=== PATIENT | female | born 1950 | race Caucasian/White ===

== ENCOUNTER → 2018-02-26 13:07 | Outpatient (CLI) | payer MEDICARE, OTHER, SELFPAY ==
--- NOTE | 2018-02-26 | DI.MRI.S_ITS ---
PROCEDURE: MR SHOULDER RT WO/W CON INDICATIONS: RIGHT SHOULDER PAIN TECHNIQUE: Noncontrast oblique coronal T1 spin echo and T2 fast spin echo with fat saturation, oblique sagittal T1 spin echo and T2 fast spin echo with fat saturation, axial T1 spin echo and T2 fast spin echo with fat saturation through the shoulder. Post-contrast oblique coronal, oblique sagittal, and axial T1 spin echo with fat saturation through the shoulder. COMPARISON: None. FINDINGS: Image quality: Excellent. Rotator cuff: Tendinosis and moderate to high grade articular surface partial thickness tear involving anterior fibers of distal supraspinatus at its insertion on greater tuberosity of humeral head extending to the musculotendinous junction. There is tendinosis and moderate grade articular and bursal surface partial-thickness tear involving distal infraspinatus at its insertion on the humeral head extending to musculotendinous junction and lateral portion of infraspinatus muscle. Tendinosis and low-grade intrasubstance partial-thickness tear involving distal subscapularis is seen. Sagittal images demonsterate mild supraspinatus muscle atrophy. The flow signal within lateral portion of infraspinatus muscle near musculotendinous junction is seen suggestive of muscle strain and intrasubstance partial-thickness tear. Bones and bursae: No suspicious bone marrow enhancement. Intraosseous cyst formation in the anterior lateral humeral head is seen a rotator cuff tendon insertion site. No bone marrow contusions or fractures. Mild acromioclavicular joint and glenohumeral joint osteoarthritis is seen.. The acromion demonstrates conventional anatomy, without an os acromiale. No pathologic subacromial-subdeltoid or subcoracoid bursal fluid is present. Capsule and soft tissues: No suspicious soft tissue enhancement. In the absence of intra-articular contrast, there is suggestion of focal posterior superior labral tear 11 to 12:00 position. There is also suggestion of inferior labral tear from 4 to 6:00 position. The glenohumeral ligaments appear intact. The long head of the biceps tendon demonstrates normal location and morphology. The rotator interval appears normal, without fibrosis. The coracohumeral ligament is normal in thickness. IMPRESSION: 1. Tendinosis and moderate to high-grade articular surface partial-thickness tear involving anterior fibers of distal supraspinatus at its insertion on greater tuberosity of humeral head. Cannot rule out focal full-thickness perforation involving most anterior fibers of distal supraspinatus at its insertion on the humeral head. No significant retraction of torn tendon fibers is seen. 2. Tendinosis and moderate grade articular and bursal surface partial-thickness tear involving distal infraspinatus at its humeral head insertion extending to musculotendinous junction with suggestion of muscle strain and intrasubstance low-grade partial-thickness tear involving lateral portion of infraspinatus muscle. 3. Distal subscapularis tendinosis. Mild supraspinatus muscle atrophy. 4. Suggestion of posterior superior labral tear at 11 to 12:00 position and inferior labral tear at 4 to 6:00 position. 5. Mild acromioclavicular joint and glenohumeral joint osteoarthritis. No fracture or dislocation. Dictated by: Jamie Gaxiola M.D. on 02/26/2018 at 15:33 Approved by: Jamie Gaxiola M.D. on 02/26/2018 at 16:01
== END ==
PROVIDERS: PCP Internal Medicine; Visit Provider Internal Medicine
DX: M25.511 Pain in right shoulder (principal)
CPT/HCPCS: 73223; A9579

== ENCOUNTER → 2018-03-28 08:51 | Outpatient (CLI) | payer MEDICARE, OTHER, SELFPAY ==
--- NOTE | 2018-03-28 | DI.US.S_ITS ---
PROCEDURE: US PELVIC COMPLETE INDICATIONS: FOLLOW UP LEFT OVARIAN CYST TECHNIQUE: Real-time scanning was performed of the pelvic organs, with image documentation. Additional endovaginal scanning was necessary due to incomplete visualization of the adnexal and endometrial structures by transabdominal scanning. COMPARISON: [facility], , PELVIC COMPLETE, 07/03/2016, 8:58. FINDINGS: Transabdominal scanning: Limited scanning through the kidneys shows no hydronephrosis. No pathologic free abdominal or pelvic fluid. Endovaginal scanning: Uterus: Uterus is normal in size at 5.7 x 2.6 x 3.7 cm. The endometrium measures 1.9 mm in combined thickness. 2 mm endometrial cyst. Posterior subserosal fibroid measuring 0.9 x 0.7 x 0.9 cm. Ovaries: Right ovary surgically absent. Left ovary measures 2.6 x 1.4 x 1.5 cm. Multiple simple cysts involve the left ovary, largest which measures up to 9.0 mm which is unchanged from prior examination. IMPRESSION: Multiple simple left ovarian cysts, largest measuring up to 9.0 mm which appears unchanged from prior examination. Continued sonographic surveillance recommended. Dictated by: Atrur RODRIGUEZ Interpreted: Jose Armando Davis MD on 03/28/2018 at 11:19 Approved by: Jose Armando Davis M.D. on 03/28/2018 at 11:57
== END ==
PROVIDERS: PCP Internal Medicine; Visit Provider Internal Medicine
DX: N83.292 Other ovarian cyst, left side (principal); D25.2 Subserosal leiomyoma of uterus; N85.8 Other specified noninflammatory disorders of uterus
CPT/HCPCS: 76830; 76856

== ENCOUNTER → 2018-11-24 09:32 | Outpatient (CLI) | payer MEDICARE, OTHER, SELFPAY ==
[2018-11-24 11:43] LABS: Alanine Aminotransferase 13 IU/L (9-52); Albumin 4.1 g/dL (3.5-5.0); Albumin Globulin Ratio 1.3 (1.0-2.8); Alkaline Phosphatase 43 U/L (38-126); Aspartate Aminotransferase 25 IU/L (14-36); BUN Creatinine Ratio 27.1 (6-22); Bilirubin Total 0.5 mg/dL (0.2-1.3); Blood Urea Nitrogen 19 mg/dL (7-17); Calcium 9.5 mg/dL (8.4-10.2); Carbon Dioxide 30 mmol/L (22-32); Chloride 101 mmol/L (98-107); Estimated Glomerular Filt Rate > 60.0 mL/min (>60); Globulin 3.1 g/dL (1.7-4.1); Glucose 78 mg/dL (80-110); HEMOLYSIS < 15 (0-50); Potassium 4.2 mmol/L (3.4-5.1); Sodium 138 mmol/L (137-145); Total Protein 7.2 g/dL (6.3-8.2)
== END ==
PROVIDERS: PCP Internal Medicine; Visit Provider Internal Medicine
DX: E83.52 Hypercalcemia (principal)
CPT/HCPCS: 36415; 80053

== ENCOUNTER → 2019-04-01 11:58 | Outpatient (CLI) | payer MEDICARE, OTHER, SELFPAY ==
--- NOTE | 2019-04-01 | DI.US.S_ITS ---
PROCEDURE: US PELVIC COMPLETE INDICATIONS: LEFT OVARIAN CYST TECHNIQUE: Real-time scanning was performed of the pelvic organs, with image documentation. Additional endovaginal scanning was necessary due to incomplete visualization of the adnexal and endometrial structures by transabdominal scanning. COMPARISON: [facility], PELVIC COMPLETE, 03/28/2018, 9:22. [facility], PELVIC COMPLETE, 07/03/2016, 8:58. FINDINGS: Transabdominal scanning: Limited scanning through the kidneys shows no hydronephrosis. No pathologic free abdominal or pelvic fluid. Endovaginal scanning: Uterus: Uterus is normal in size at 3.0 x 3.6 x 5.5 cm. The endometrium measures 1.8 mm in combined thickness. Ovaries: Not seen, no adnexal dominant cyst is found. IMPRESSION: Normal endometrium, normal myometrium. No adnexal cystic or solid mass is found. Dictated by: Eric Henderson M.D. on 04/01/2019 at 15:43 Approved by: Eric Henderson M.D. on 04/01/2019 at 15:45
== END ==
PROVIDERS: PCP Internal Medicine; Visit Provider Internal Medicine
DX: N83.292 Other ovarian cyst, left side (principal)
CPT/HCPCS: 76830; 76856

== ENCOUNTER → 2019-04-10 06:50 | Outpatient (CLI) | payer MEDICARE, OTHER, SELFPAY ==
--- NOTE | 2019-04-10 | DI.ECHO.S_ITS ---
[place] +---------+ [facility] +---------+ : : [address] : : : : [id number] : : : : Phone: [phone]+ Echocardiogram Report + + :Name: THANG FONSECA Study Date: 04/10/2019 Height: 64 in : :[facility] Weight: 141 lb : : Gender: Female BSA: 1.7 m2 : :: 1950 Age: 68 yrs BP: 111/78 mmHg: :Reason For Study: PALPITATIONS : : Performed By: Moshe Rubio : :Referring: MARIANNA HINTON : + + Interpretation Summary Normal left ventricle size with ejection fraction 55-60%. Severely dilated both atria. Mild aortic valve sclerosis. Mild aortic regurgitation. Mild mitral valve prolapse. Moderate to severe mitral regurgitation. Mild to moderate tricuspid regurgitation. Procedure: A two-dimensional transthoracic echocardiogram with color flow and Doppler was performed. The study quality was technically good. There is no prior echocardiogram noted for this patient. The patient was in normal sinus rhythm during the exam. The patient had occasional PVCs during the exam. Left Ventricle: The left ventricle is normal in size. There is normal left ventricular wall thickness. The ejection fraction is estimated to be 55-60%. There are no focal wall motion abnormalities. Right Ventricle: The right ventricle is normal in size and function. Atria: Both atria are severely dilated. The interatrial septum is intact with no evidence for an atrial septal defect. Mitral Valve: The mitral valve leaflets appear borderline thickened, but open well. There is mild mitral valve prolapse. There is moderate to severe mitral regurgitation. Aortic Valve: The aortic valve is trileaflet. The aortic valve opens well. There is mild aortic valve sclerosis. There is mild aortic regurgitation. Tricuspid Valve: The tricuspid valve is normal in structure and function. There is mild to moderate tricuspid regurgitation. The right ventricular systolic pressure is estimated to be at least 22 mmHg based on an estimated right atrial pressure of 3 mm Hg. Pulmonic Valve: The pulmonic valve is normal in structure and function. There is trace pulmonic regurgitation. Great Vessels: The aortic root is normal size. The dimensions of the ascending aorta are normal. The pulmonary artery is normal size. The IVC is of normal diameter and collapses greater than 50% with a sniff. This suggests a low right atrial pressure of 3 mm Hg. Pericardium/ Pleura There is no pericardial effusion. There is no pleural effusion. MMode/2D Measurements & Calculations LVIDd: 5.1 cm LVOT diam: 2.4 cm LVIDs: 3.3 cm Ao root diam: 3.5 cm FS: 35.5 % Aortic Jxn: 3.2 cm EPSS: 0.41 cm asc Aorta Diam: 3.2 cm IVSd: 0.83 cm Ao Arch Diam (Prox Trans): 2.1 cm LVPWd: 1.0 cm LV jones. diameter/BSA (cm/m^2): 3.0 LV sys. diameter/BSA (cm/m^2): 2.0 LA A2 area: 24.5 cm2 RA long axis: 6.3 cm LA A4 area: 24.4 cm2 RA area: 24.3 cm2 LA length (vol): 6.0 cm RA vol: 80.2 ml LA vol: 84.5 ml RA : 47.6 ml/m2 LA vol index: 50.1 ml/m2 IVC diam: 1.2 cm RVD1 (basal): 3.8 cm RVD2 (mid): 3.0 cm Doppler Measurements & Calculations Ao V2 max: 113.7 cm/sec LVOT Max Joseph: 94.2 cm/sec Ao V2 mean: 84.1 cm/sec LV V1 max P.5 mmHg Ao max P.2 mmHg LV V1 VTI: 20.0 cm Ao mean P.0 mmHg ROULA(I,D): 3.6 cm2 Ao V2 VTI: 24.7 cm ROULA(V,D): 3.7 cm2 sev ratio: 0.81 ROULA indexed to BSA (cm^2/m^2): 2.1 AI P1/2t: 654.1 msec AI dec slope: 202.3 cm/sec2 MV E max joseph: 53.3 cm/sec TR max joseph: 217.6 cm/sec MV A max joseph: 52.0 cm/sec TR max P.9 mmHg MV E/A: 1.0 PA V2 max: 66.2 cm/sec Med Peak E' Joseph: 4.1 cm/sec PA V2 mean: 52.2 cm/sec E/E' med: 12.9 PA mean P.1 mmHg Lat Peak E' Joseph: 3.8 cm/sec PA pr(Accel): 39.1 mmHg E/E' lat: 14.0 PA Accel Time: 0.09 sec E/e' average: 13.4 MV dec time: 0.27 sec SV(LVOT): 88.3 ml Electronically signed by: Lori Velasquez on Reading Physician:04/10/2019 01:56 PM
== END ==
PROVIDERS: PCP Internal Medicine; Referring Provider Internal Medicine; Visit Provider Internal Medicine
DX: I08.3 Combined rheumatic disorders of mitral, aortic and tricuspid valves (principal); R00.2 Palpitations; R42 Dizziness and giddiness; G43.109 Migraine with aura, not intractable, without status migrainosus
CPT/HCPCS: 93306

== ENCOUNTER 2019-04-18 19:02 | Emergency (ER) | payer MEDICARE, OTHER, SELFPAY ==
[2019-04-18 19:14] VITALS: BP 181/80; PULSE 110; RESP 20; TEMP 37.2; O2SAT 100; BMI 24.4
--- NOTE | 2019-04-18 19:26 | DI.RAD.S_ITS ---
PROCEDURE: XR CHEST 1V INDICATIONS: chest pain TECHNIQUE: One view of the chest was acquired. COMPARISON: None. FINDINGS: Surgical changes and devices: None. Lungs and pleura: Lungs are clear. No pleural effusions or pneumothorax. Mediastinum: Mediastinal contours appear normal. Heart size is normal. Bones and chest wall: No suspicious bony lesions. Overlying soft tissues appear unremarkable. IMPRESSION: No evidence acute pulmonary process. Dictated by: Jose Armando Davis M.D. on 04/18/2019 at 20:31 Approved by: Jose Armando Davis M.D. on 04/18/2019 at 20:32
--- NOTE | 2019-04-18 20:05 | ED.DIZZY ---
HPI - Dizziness General Chief Complaint: Dizziness Stated Complaint: Weakness,shakiness,dizziness Time Seen by Provider: 04/18/19 20:04 Source: patient Mode of arrival: Family Vehicle Limitations: no limitations History of Present Illness HPI Narrative: 68-year-old female nonsmoker with history of difficulty with sleep presents with her in the chief complaint of many months of vague episodes of dizziness and occasional shaking. She states that she has largely been dizzy for many months and states that she is often unsteady and occasionally vertiginous. She denies any focal neurologic findings such as blurred or double vision, trouble with speech or extremity numbness, tingling or weakness. She denies any obvious pattern to her dizziness and associated symptoms such as headache or recent upper respiratory complaints like runny nose, sinus pressure, sore throat or cough. She has been eliminating many of her medications with the assistance of her primary care provider. Additionally she claims that her mouth is frequently dry despite how much water she drinks. She does take Benadryl most nights to help her sleep. She historically had been on gabapentin at nighttime but stopped that a few months ago under the direction of her provider. She was recently placed on a property assessment monitor to see if this helps she had any light on her episodes of dizziness. She states that she also has episodes where she gets very shaky and it lasts approximately 10 minutes. She denies feeling ill, having any pain, being grossly otherwise at her baseline. complaint: dizziness Onset (ago): month(s) Timing: gradual onset Description: lightheadedness History of similar episodes: Yes Severity: moderate Relieving factors: nothing Exacerbating factors: nothing Related Data Home Medications Medication Instructions Recorded Confirmed gabapentin 100 mg capsule 200 mg PO BEDTIME cap 02/17/19 02/17/19 lidocaine 5 % topical patch 1 patch TOP DAILY 02/17/19 02/17/19 sleep aid sheikh PO BEDTIME 02/17/19 sumatriptan succinate 25 mg tablet 25 mg PO ONCE 02/17/19 02/17/19 Allergies Allergy/AdvReac Type Severity Reaction Status Date / Time azithromycin [AZITHROMYCIN] Allergy Unknown Verified 04/18/19 19:22 Review of Systems Constitutional Constitutional: Denies chills, Denies fatigue, Denies fever(s), Denies frequent falls, Denies lethargy and Denies weakness Eyes Eyes: Denies change in vision, Denies eye discharge, Denies irritation and Denies loss of vision ENT Ears, Nose, Mouth, and Throat: Denies change in voice, Reports dizziness, Denies neck pain, Denies sore throat and Denies throat swelling Cardiovascular Cardiovascular: Denies chest pain, Denies irregular heart rhythm, Denies lightheadedness, Denies palpitations, Denies dyspnea, Denies dyspnea on exertion and Denies orthopnea Respiratory Respiratory: Denies cough, Denies dyspnea, Denies dyspnea on exertion and Denies wheezing Gastrointestinal Gastrointestinal: Denies abdominal pain, Denies change in bowel habits, Denies diarrhea, Denies nausea and Denies vomiting Genitourinary Genitourinary: Denies hematuria, Denies flank pain, Denies urinary incontinence and Denies urinary urgency Musculoskeletal Musculoskeletal: Denies back pain, Denies muscle weakness, Denies neck pain, Denies numbness and Denies tingling Integumentary/Breasts Skin/Breast: Denies pruritus, Denies erythema, Denies rash and Denies wounds Neurologic Neurologic: Denies behavioral changes, Denies confusion, Reports dizziness, Denies frequent falls, Denies loss of vision, Denies numbness, Denies tingling and Denies weakness Psychiatric Psychiatric: Denies anxiety, Denies behavioral changes, Denies confusion, Denies depression, Denies homicidal ideation and Denies suicidal ideation Endocrine Endocrine: Denies fatigue, Denies flushing and Denies palpitations Hematologic/Lymphatic Hematologic/Lymphatic: Denies easy bruising Allergic/Immunologic Allergic/Immunologic: Denies urticaria, Denies throat swelling and Denies wheezing Patient History Surgical History History of fusion of cervical spine (Acute) History of removal of ovarian cyst (Acute) Family History Son Migraine Father Prostate CA Mother Diverticulitis Sister Basal cell carcinoma Social History Smoking Status: Never smoker Smoking Status: Never smoker alcohol intake frequency: 0-2 drinks per day Substance Use Type: does not use Exam Narrative Exam Narrative: GENERAL: [68] year old patient appears stated age. Well-nourished, well-developed patient, in mild distress. Anxious HEAD: Atraumatic. Normocephalic. EYES: Pupils equal round and reactive. Extraocular motions intact. No scleral icterus. No injection or drainage. ENT: Nose without bleeding, purulent drainage. Throat without erythema, tonsillar hypertrophy or exudate. Airway patent. NECK: Trachea midline. Non tender CARDIOVASCULAR: Regular rate and rhythm without murmurs, gallops, or rubs. RESPIRATORY: Clear to auscultation. Breath sounds equal bilaterally. No wheezes, rales, or rhonchi. GASTROINTESTINAL: Abdomen soft, non-tender, nondistended. EXTREMITIES: No edema or joint tenderness. BACK: Nontender without deformity or crepitance. No flank tenderness. NEURO: AOx3. SKIN: No rash or erythema of visible areas NIH Stroke Scale 1a. LOC: Patient is alert and keenly responsive (0) 1b. LOC Questions: Patient answers both LOC questions accurately (0) 1c. LOC Commands: Patient performs both tasks correctly (0) 2. Best Gaze: Normal (0) 3. Visual: No visual loss (0) 4. Facial palsy: Normal symmetrical movements (0) 5. Motor arm: No drift (0) 6. Motor leg: No drift (0) 7. Limb ataxia: Absent (0) 8. Sensory: Normal (0) 9. Best language: No aphasia; normal (0) 10. Dysarthria: Normal (0) 11. Extinction and inattention: No abnormality (0) NIHSS: 0 Initial Vital Signs Initial Vital Signs: Vital Signs Temperature 98.9 F 04/18/19 19:14 Pulse Rate 110 H 04/18/19 19:14 Respiratory Rate 20 04/18/19 19:14 Blood Pressure 181/80 H 04/18/19 19:14 Pulse Oximetry 100 04/18/19 19:14 Course Orders Ordered: ED Orders 04/18/19 19:26 XR chest 1V Stat EKG-12 Lead Stat 04/18/19 20:01 Complete Blood Count AUTO DIFF Stat Comprehensive Metabolic Panel Stat D Dimer Stat Lipase Stat Magnesium Stat Partial Thromboplastin Time Stat Prothrombin Time INR Stat T4 Total Thyroxine Stat Thyroid Stimulating Hormone Stat Troponin & CK Cardiac Panel Stat 04/18/19 20:40 CT head/brain wo con Stat Vital Signs Vital signs: Vital Signs - 8 hr 04/18/19 19:14 04/18/19 21:49 Temperature 98.9 F Pulse Rate 110 H 77 Respiratory Rate 20 18 Blood Pressure 181/80 H Blood Pressure [Left Arm] 129/68 Pulse Oximetry 100 97 MDM - Dizziness Lab Data Result diagrams: 04/18/19 20:04/18/19 20:01 Labs: Lab Results 04/18/19 04/18/19 04/18/19 Range/Units 20:01 20:01 20:01 WBC 8.5 (4.5-11.0) X10^3/uL RBC 4.55 (4.0-5.2) X10^6/uL Hgb 13.9 (12.0-16.0) g/dL Hct 42.5 (36-46) % MCV 93.3 (80-100) fL MCH 30.6 (26-34) PG MCHC 32.8 (30-36) % RDW 13.9 (11.6-14.8) % Plt Count 273 (150-400) X10^3/uL Neut % (Auto) 63.7 (50-75) % Lymph % (Auto) 26.3 (25-40) % [place] % (Auto) 8.3 (3-14) % Eos % (Auto) 0.7 L (2-4) % Baso % (Auto) 1.0 (0-2) % Neut # (Auto) 5400 (1946-4490) /uL Lymph # (Auto) 2200 (3768-5898) /uL [place] # (Auto) 700 (0-900) /uL Eos # (Auto) 100 (0-450) /uL Baso # (Auto) 100 (0-100) /uL PT 11.4 (10.1-12.7) SECONDS INR 1.0 (0.9-1.3) APTT 29 (26.4-36.2) SECONDS D-Dimer (<230) ng/mL Sodium 140 (137-145) mmol/L Potassium 3.7 (3.4-5.1) mmol/L Chloride 105 (98-107) mmol/L Carbon Dioxide 23 (22-32) mmol/L BUN 11 (7-17) mg/dL Creatinine 0.60 (0.52-1.04) mg/dL Estimated GFR > 60.0 (>60) mL/min BUN/Creatinine Ratio 18.3 (6-22) Glucose 143 H (80-110) mg/dL Calcium 9.8 (8.4-10.2) mg/dL Magnesium 2.1 (1.6-2.3) mg/dL Total Bilirubin 0.4 (0.2-1.3) mg/dL AST 31 (14-36) IU/L ALT 22 (<35) IU/L Alkaline Phosphatase 47 (38-126) U/L Total Creatine Kinase 72 (30-135) U/L CK-MB (CK-2) TNP CK-MB (CK-2) Rel Index TNP Troponin I < 0.012 (0.01-0.034) ng/mL Total Protein 8.1 (6.3-8.2) g/dL Albumin 4.6 (3.5-5.0) g/dL Globulin 3.5 (1.7-4.1) g/dL Albumin/Globulin Ratio 1.3 (1.0-2.8) Lipase 87 (23-300) U/L TSH (0.47-4.68) uIU/mL Thyroxine (T4) (5.5-11.0) ug/dL 04/18/19 04/18/19 Range/Units 20:01 20:01 WBC (4.5-11.0) X10^3/uL RBC (4.0-5.2) X10^6/uL Hgb (12.0-16.0) g/dL Hct (36-46) % MCV (80-100) fL MCH (26-34) PG MCHC (30-36) % RDW (11.6-14.8) % Plt Count (150-400) X10^3/uL Neut % (Auto) (50-75) % Lymph % (Auto) (25-40) % [place] % (Auto) (3-14) % Eos % (Auto) (2-4) % Baso % (Auto) (0-2) % Neut # (Auto) (3144-9492) /uL Lymph # (Auto) (9425-3060) /uL [place] # (Auto) (0-900) /uL Eos # (Auto) (0-450) /uL Baso # (Auto) (0-100) /uL PT (10.1-12.7) SECONDS INR (0.9-1.3) APTT (26.4-36.2) SECONDS D-Dimer < 200 (<230) ng/mL Sodium (137-145) mmol/L Potassium (3.4-5.1) mmol/L Chloride (98-107) mmol/L Carbon Dioxide (22-32) mmol/L BUN (7-17) mg/dL Creatinine (0.52-1.04) mg/dL Estimated GFR (>60) mL/min BUN/Creatinine Ratio (6-22) Glucose (80-110) mg/dL Calcium (8.4-10.2) mg/dL Magnesium (1.6-2.3) mg/dL Total Bilirubin (0.2-1.3) mg/dL AST (14-36) IU/L ALT (<35) IU/L Alkaline Phosphatase (38-126) U/L Total Creatine Kinase (30-135) U/L CK-MB (CK-2) CK-MB (CK-2) Rel Index Troponin I (0.01-0.034) ng/mL Total Protein (6.3-8.2) g/dL Albumin (3.5-5.0) g/dL Globulin (1.7-4.1) g/dL Albumin/Globulin Ratio (1.0-2.8) Lipase (23-300) U/L TSH 7.22 H (0.47-4.68) uIU/mL Thyroxine (T4) 8.41 (5.5-11.0) ug/dL Imaging Data CT scan - head: Radiologist's Impression: [place] [address] CT Scan Report Signed Patient: Keliy Xiao#: [id number] : 1950cct:[id number] Age/Sex: 68 / FDate of Service: 04/18/19 Loc: ED Accession Number: [id number] Procedure: CT head/brain wo con Ordering Provider: Werner Galeano D.O. PROCEDURE: CT HEAD/BRAIN WO CON INDICATIONS: dizziness, unsteady TECHNIQUE: Noncontrast 4.5 mm thick angled axial sections acquired from the foramen magnum to the vertex, with coronal and sagittal reformats. For radiation dose reduction, the following was used: automated exposure control, adjustment of mA and/or kV according to patient size. COMPARISON: None. FINDINGS: Image quality: Excellent. CSF spaces: Basal cisterns are patent. No extra-axial fluid collections. Ventricles are normal in size and shape. Brain: No midline shift. No intracranial masses or hemorrhage. Vieyra-white matter interface is normal. Skull and face: Calvarium and visualized facial bones are intact, without suspicious lesions. Sinuses: Visualized sinuses and mastoids are clear. IMPRESSION: Negative head CT. No evidence of acute stroke, hemorrhage, or mass. Dictated by: Jose Armando Davis M.D. on 04/18/2019 at 21:19 Approved by: Jose Armando Davis M.D. on 04/18/2019 at 21:20 Discharge Plan Departure Patient Disposition: Home Clinical Impression: Dizziness Discharge Date/Time: 04/18/19 23:34 Activity Restrictions/Additional Instructions: *You have been diagnosed with [chronic dizziness] *What to do: *Take medications as directed *Follow up with your primary care provider in 2-3 days, call for an appointment. Let them know you were seen in the Emergency Department and that we ask that you be seen in follow up *Return to ER if you should have any new, worsening or concerning symptoms Prescriptions: No Action sumatriptan succinate 25 mg tablet 25 mg PO ONCE RF: 0 gabapentin 100 mg capsule 200 mg PO BEDTIME RF: 0 sleep aid sheikh PO BEDTIME RF: 0 lidocaine 5 % adhesive patch,medicated 1 patch TOP DAILY RF: 0 Referrals: Raghavendra Servin MD [Primary Care Provider] -
[2019-04-18 20:13] LABS: Add Manual Diff / Slide Review NO; Basophils Absolute Auto 100 /uL (0-100); Eosinophils Absolute Auto 100 /uL (0-450); Eosinophils Percent Auto 0.7 % (2-4); Hematocrit 42.5 % (36-46); Hemoglobin 13.9 g/dL (12.0-16.0); Lymphocytes Absolute Auto 2200 /uL (1100-4500); Lymphocytes Percent Auto 26.3 % (25-40); Mean Corpuscular HGB Conc 32.8 % (30-36); Mean Corpuscular Hemoglobin 30.6 PG (26-34); Mean Corpuscular Volume 93.3 fL (80-100); Monocytes Absolute Auto 700 /uL (0-900); Monocytes Percent Auto 8.3 % (3-14); Neutrophils Absolute Auto 5400 /uL (1500-7000); Neutrophils Percent Auto 63.7 % (50-75); Platelet Count 273 X10^3/uL (150-400); Red Blood Cell Count 4.55 X10^6/uL (4.0-5.2); Red Cell Distribution Width 13.9 % (11.6-14.8); White Blood Cell Count 8.5 X10^3/uL (4.5-11.0)
[2019-04-18 20:19] LABS: Prothrombin Time 11.4 SECONDS (10.1-12.7)
[2019-04-18 20:21] LABS: PTT Partial Thromboplastin Tim 29 SECONDS (26.4-36.2)
[2019-04-18 20:22] LABS: Alanine Aminotransferase 22 IU/L (<35); Albumin 4.6 g/dL (3.5-5.0); Albumin Globulin Ratio 1.3 (1.0-2.8); Alkaline Phosphatase 47 U/L (38-126); Aspartate Aminotransferase 31 IU/L (14-36); BUN Creatinine Ratio 18.3 (6-22); Bilirubin Total 0.4 mg/dL (0.2-1.3); Blood Urea Nitrogen 11 mg/dL (7-17); Calcium 9.8 mg/dL (8.4-10.2); Carbon Dioxide 23 mmol/L (22-32); Chloride 105 mmol/L (98-107); Creatine Kinase 72 U/L (30-135); Estimated Glomerular Filt Rate > 60.0 mL/min (>60); Globulin 3.5 g/dL (1.7-4.1); Glucose 143 mg/dL (80-110); HEMOLYSIS 32 (0-50); Lipase 87 U/L (23-300); Magnesium 2.1 mg/dL (1.6-2.3); Potassium 3.7 mmol/L (3.4-5.1); Sodium 140 mmol/L (137-145); Total Protein 8.1 g/dL (6.3-8.2)
[2019-04-18 20:36] LABS: Troponin I < 0.012 ng/mL (0.01-0.034)
--- NOTE | 2019-04-18 20:40 | DI.CT.S_ITS ---
PROCEDURE: CT HEAD/BRAIN WO CON INDICATIONS: dizziness, unsteady TECHNIQUE: Noncontrast 4.5 mm thick angled axial sections acquired from the foramen magnum to the vertex, with coronal and sagittal reformats. For radiation dose reduction, the following was used: automated exposure control, adjustment of mA and/or kV according to patient size. COMPARISON: None. FINDINGS: Image quality: Excellent. CSF spaces: Basal cisterns are patent. No extra-axial fluid collections. Ventricles are normal in size and shape. Brain: No midline shift. No intracranial masses or hemorrhage. Vieyra-white matter interface is normal. Skull and face: Calvarium and visualized facial bones are intact, without suspicious lesions. Sinuses: Visualized sinuses and mastoids are clear. IMPRESSION: Negative head CT. No evidence of acute stroke, hemorrhage, or mass. Dictated by: Jose Armando Davis M.D. on 04/18/2019 at 21:19 Approved by: Jose Armando Davis M.D. on 04/18/2019 at 21:20
[2019-04-18 20:45] LABS: D Dimer < 200 ng/mL (<230)
[2019-04-18 21:19] LABS: T4 Total Thyroxine 8.41 ug/dL (5.5-11.0)
[2019-04-18 21:32] LABS: Thyroid Stimulating Hormone 7.22 uIU/mL (0.47-4.68)
[2019-04-18 21:49] VITALS: BP 129/68; PULSE 77; RESP 18; O2SAT 97
[2019-04-18 23:00] VITALS: BP 130/60; PULSE 78; RESP 16; O2SAT 98
[2019-04-20 13:02] LABS: Hemoglobin A1C% w Est Avg Glu 5.3 % (4.0-6.0)
[2019-04-22 15:17] LABS: Triiodothyronine T3 Total 123 ng/dL (76-181)
== END 2019-04-18 23:34 | disposition home or self-care (01) ==
PROVIDERS: Emergency Provider Emergency Medicine; PCP Internal Medicine
DX: R42 Dizziness and giddiness (principal); R07.9 Chest pain, unspecified
CPT/HCPCS: 36415; 70450; 71045; 80053; 82550; 83036; 83690; 83735; 84436; 84443; 84480; 84484; 85025; 85379; 85610; 85730; 93005; 99284; 99285

== ENCOUNTER → 2019-04-24 09:30 | Outpatient (CLI) | payer MEDICARE, OTHER, SELFPAY ==
--- NOTE | 2019-04-24 09:36 | DI.US.S_ITS ---
PROCEDURE: US THYROID INDICATIONS: NONTOXIC SINGLE THYROID NODULE TECHNIQUE: Real-time scanning was performed of the thyroid gland, with image documentation. COMPARISON: None. FINDINGS: Right: Thyroid lobe measures 5.0 x 2.0 x 1.7 cm, and is diffusely heterogeneous in echotexture. Left: Thyroid lobe measures 5.2 x 1.6 x 1.7 cm, and is diffusely heterogeneous in echotexture. Isthmus: 3.0 mm thick. Nodule number: 1 Location: Right mid Size: 1.0 x 0.5 x 0.9 cm. Composition: Solid Echogenicity: Hypoechoic Shape: wider than tall. Margins: Ill-defined Echogenic foci: None Total points: 4 ACR TI-RADS category: Moderately suspicious Nodule number: 2 Location: Left superior Size: 1.0 x 0.8 x 0.8 cm. Composition: Predominant solid Echogenicity: Hypoechoic Shape: wider than tall. Margins: Smooth Echogenic foci: None Total points: 4 ACR TI-RADS category: Moderately suspicious Nodule number: 3 Location: Isthmus Size: 0.9 x 0.4 x 0.6 cm. Composition: Solid Echogenicity: Mildly hypoechoic Shape: wider than tall. Margins: Smooth Echogenic foci: None Total points: 4 ACR TI-RADS category: Moderately suspicious IMPRESSION: Bilateral thyroid nodules as above. Recommend continued followup ultrasound as detailed below. ACR TI-RADS definitions and recommendations: TI-RADS 1 (benign): 0 points. FNA not needed. TI-RADS 2 (not suspicious): 2 points. FNA not needed. TI-RADS 3 (mildly suspicious): 3 points. * FNA if 2.5 cm or larger, follow up if 1.5 cm or larger (at 1, 3, and 5 years). TI-RADS 4 (moderately suspicious): 4-6 points. * FNA if 1.5 cm or larger, follow up if 1 cm or larger (at 1, 2, 3, and 5 years). TI-RADS 5 (highly suspicious): 7 points or more. * FNA if 1 cm or larger, follow up if 0.5 cm or larger (every year for 5 years). Dictated by: Artur Major [facility] Interpreted: Jersey Ma MD on 04/24/2019 at 11:57 Approved by: Jersey Ma M.D. on 04/24/2019 at 13:46
== END ==
PROVIDERS: PCP Internal Medicine; Referring Provider Internal Medicine; Visit Provider Internal Medicine
DX: E04.2 Nontoxic multinodular goiter (principal)
CPT/HCPCS: 76536

== ENCOUNTER → 2019-05-04 11:37 | Outpatient (CLI) | payer MEDICARE, OTHER, SELFPAY ==
--- NOTE | 2019-05-04 | DI.MRI.S_ITS ---
PROCEDURE: MR STROKE Pre- and post-contrast brain MRI, non-contrast brain MR angiogram, pre- and postcontrast neck MR angiogram INDICATIONS: Other visual disturbances TECHNIQUE: Brain: Noncontrast axial T1 spin echo, axial T2 fast spin echo, sagittal and axial FLAIR, coronal T2 fast spin echo, axial gradient echo, axial diffusion and ADC through the brain. After the administration of contrast, axial 3D VIBE of the cranial vasculature and brain. Brain MRA: Non-contrast 3-D time of flight MR angiogram, with multiple aicikvw-pxkcsvcbg-vmytepshoh (MIP) reformats performed. Neck MRA: Axial and sagittal TruFISP through the neck. Coronal dynamic MR angiogram during administration of contrast in the arterial and venous phases, with 3-dimenstional eutndgf-jcwqmbdzs-zpgxotfqof (MIP) reformats constructed from subtraction images. COMPARISON: None. FINDINGS: Image quality: Excellent. BRAIN: CSF spaces: Ventricles are normal in size and shape. Basal cisterns are patent. No extra-axial fluid collections. Brain: No intracranial bleeds or mass effects. Vieyra-white matter interface is normal. Diffusion weighted images show no acute ischemic insults. Brainstem appears normal. Normal intravascular flow voids are present. No abnormal intracranial enhancement. Skull and face: Calvarial marrow signal is normal. Orbits appear normal. Sinuses: Sinuses and mastoids are clear. BRAIN MR ANGIOGRAM: Anterior circulation: Intracranial internal carotid arteries are normal in size and enhancement. The flow within the paired anterior cerebral arteries is normal and symmetric. The flow within the middle cerebral arteries is normal and symmetric. The anterior communicating artery is seen. No stenoses, occlusions, or aneurysms. Posterior circulation: The visualized portions of the vertebral arteries demonstrate normal caliber, and join to form a normal appearing basilar artery. The flow within the posterior cerebral arteries is normal and symmetric. No stenoses, occlusions, or aneurysms. NECK MR ANGIOGRAM: Carotids: Great vessels demonstrate a conventional anatomy as they arise from the aortic arch. The origins of the common carotid arteries appear patent. The calibers and courses of both common carotid arteries are normal. The bifurcation regions appear normal bilaterally. The internal carotid arteries demonstrate normal caliber. Pharyngeal loop is present on the right. Posterior circulation: The origins of the vertebral arteries appear patent. origin of the left posterior cervical artery. More superior portions of both vertebral arteries demonstrate normal course and caliber, and join to form a normal appearing basilar artery. Miscellaneous: Subclavian arteries appear patent. Pre-contrast images through the neck show no soft tissue abnormalities. IMPRESSION: BRAIN MRI: 1. No acute process. No recent infarct. No examination for visual disturbance. BRAIN MR ANGIOGRAM: Negative cerebral MR angiography. NECK MR ANGIOGRAM: 1. No internal carotid artery stenosis bilaterally. 2. Patent bilateral vertebral arteries. Dictated by: To Dawson M.D. on 05/04/2019 at 14:57 Approved by: To Dawson M.D. on 05/04/2019 at 15:01
== END ==
PROVIDERS: PCP Internal Medicine; Referring Provider Internal Medicine; Visit Provider Internal Medicine
DX: H53.8 Other visual disturbances (principal); R42 Dizziness and giddiness; R53.1 Weakness
CPT/HCPCS: 70548; 70553; A9579

== ENCOUNTER → 2019-10-28 08:35 | Outpatient (CLI) | payer MEDICARE, OTHER, SELFPAY ==
[2019-10-29 06:27] LABS: COVID19 Sendout Not Detected (Not Detect)
== END ==
PROVIDERS: PCP Internal Medicine; Visit Provider Nurse Practitioner
DX: Z11.59 Encounter for screening for other viral diseases (principal)
CPT/HCPCS: 87635

== ENCOUNTER → 2022-02-08 13:48 | Outpatient (CLI) | payer MEDICARE, OTHER, SELFPAY ==
[2022-02-08 18:07] LABS: Influenza A - CEPHEID Flu A POSITIVE (NEGATIVE); Influenza B - CEPHEID Flu B NEGATIVE (NEGATIVE); Respiratory Syncytial Virus Negative (Negative)
[2022-02-08 18:08] LABS: COVID-19 CEPHEID 4-PLEX PCR Negative (Negative)
== END ==
PROVIDERS: PCP Internal Medicine; Visit Provider Nurse Practitioner Family
DX: R05.9 Cough, unspecified (principal); Z20.822 Contact with and (suspected) exposure to COVID-19
CPT/HCPCS: 0241U

== ENCOUNTER → 2022-04-20 09:44 | Outpatient (CLI) | payer MEDICARE, OTHER, SELFPAY | PROVIDERS: PCP Internal Medicine; Visit Provider Registered Nurse | DX: R30.0 Dysuria (principal) | CPT/HCPCS: 87077; 87086; 87186 ==

== ENCOUNTER → 2022-05-10 07:20 | Outpatient (CLI) | payer MEDICARE, OTHER, SELFPAY ==
[2022-05-10 08:38] LABS: Basophils Percent Auto 1.3 % (0-2); Eosinophils Percent Auto 2.9 % (2-4); Hematocrit 40.6 % (36-46); Hemoglobin 13.5 g/dL (12.0-16.0); Lymphocytes Percent Auto 27.3 % (25-40); Mean Corpuscular HGB Conc 33.3 % (30-36); Mean Corpuscular Hemoglobin 30.4 PG (26-34); Mean Corpuscular Volume 91.5 fL (80-100); Monocytes Percent Auto 9.9 % (3-14); Neutrophils Percent Auto 58.6 % (50-75); Platelet Count 303 X10^3/uL (150-400); Red Blood Cell Count 4.44 X10^6/uL (4.0-5.2); Red Cell Distribution Width 13.4 % (11.6-14.8); White Blood Cell Count 5.2 X10^3/uL (4.5-11.0)
[2022-05-10 08:39] LABS: Add Manual Diff / Slide Review NO; Basophils Absolute Auto 100 /uL (0-100); Eosinophils Absolute Auto 200 /uL (0-450); Lymphocytes Absolute Auto 1400 /uL (1100-4500); Monocytes Absolute Auto 500 /uL (0-900); Neutrophils Absolute Auto 3000 /uL (1500-7000)
[2022-05-10 09:22] LABS: Alanine Aminotransferase 24 IU/L (<35); Albumin 4.2 g/dL (3.5-5.0); Albumin Globulin Ratio 1.6 (1.0-2.8); Alkaline Phosphatase 53 U/L (38-126); Aspartate Aminotransferase 26 IU/L (14-36); BUN Creatinine Ratio 26.6 (6-22); Bilirubin Total 0.6 mg/dL (0.2-1.3); Blood Urea Nitrogen 17 mg/dL (7-17); Carbon Dioxide 29 mmol/L (22-32); Chloride 102 mmol/L (98-107); Estimated Glomerular Filt Rate > 60 mL/min (>60); Globulin 2.7 g/dL (1.7-4.1); Glucose 87 mg/dL (80-110); HEMOLYSIS < 15 (0-50); Magnesium 2.1 mg/dL (1.6-2.3); Potassium 4.6 mmol/L (3.4-5.1); Sodium 138 mmol/L (137-145); Total Protein 6.9 g/dL (6.3-8.2)
[2022-05-10 09:51] LABS: TSH w/ Reflex to FT4 1.84 uIU/mL (0.47-4.68)
[2022-05-10 19:27] LABS: Hemoglobin A1C% w Est Avg Glu 5.3 % (4.0-6.0)
== END ==
PROVIDERS: PCP Family Medicine; Referring Provider Family Medicine; Visit Provider Family Medicine
DX: R00.2 Palpitations (principal); R73.9 Hyperglycemia, unspecified; E03.9 Hypothyroidism, unspecified
CPT/HCPCS: 36415; 80053; 83036; 83735; 84443; 85025

== ENCOUNTER → 2023-03-06 14:17 | Outpatient (CLI) | payer MEDICARE, OTHER, SELFPAY ==
[2023-03-06 16:29] LABS: Add Manual Diff / Slide Review NO; Basophils Absolute Auto 100 /uL (0-100); Basophils Percent Auto 0.7 % (0-2); Eosinophils Absolute Auto 100 /uL (0-450); Eosinophils Percent Auto 0.7 % (2-4); Hematocrit 41.3 % (36-46); Hemoglobin 13.8 g/dL (12.0-16.0); Lymphocytes Absolute Auto 1600 /uL (1100-4500); Lymphocytes Percent Auto 21.1 % (25-40); Mean Corpuscular HGB Conc 33.4 % (30-36); Mean Corpuscular Volume 92.7 fL (80-100); Monocytes Absolute Auto 500 /uL (0-900); Monocytes Percent Auto 6.2 % (3-14); Neutrophils Absolute Auto 5500 /uL (1500-7000); Neutrophils Percent Auto 71.3 % (50-75); Platelet Count 279 X10^3/uL (150-400); Red Blood Cell Count 4.46 X10^6/uL (4.0-5.2); Red Cell Distribution Width 13.3 % (11.6-14.8); White Blood Cell Count 7.7 X10^3/uL (4.5-11.0)
[2023-03-06 16:37] LABS: Hemoglobin A1C% w Est Avg Glu 5.5 % (4.0-6.0)
[2023-03-06 17:00] LABS: Alanine Aminotransferase 19 IU/L (<35); Albumin 3.9 g/dL (3.5-5.0); Albumin Globulin Ratio 1.2 (1.0-2.8); Alkaline Phosphatase 47 U/L (38-126); BUN Creatinine Ratio 27.7 (6-22); Bilirubin Total 0.4 mg/dL (0.2-1.3); Blood Urea Nitrogen 18 mg/dL (7-17); Calcium 9.2 mg/dL (8.4-10.2); Carbon Dioxide 28 mmol/L (22-32); Chloride 103 mmol/L (98-107); Estimated Glomerular Filt Rate > 60 mL/min (>60); Globulin 3.2 g/dL (1.7-4.1); Glucose 139 mg/dL (80-110); HEMOLYSIS < 15 (0-50); Potassium 3.8 mmol/L (3.4-5.1); Sodium 138 mmol/L (137-145); Total Protein 7.1 g/dL (6.3-8.2)
[2023-03-06 22:34] LABS: Vitamin D 25 Hydroxy (D3) 69.7 ng/mL (30.0-100.0)
[2023-03-06 23:58] LABS: Free T3, Triiodothyronine Free 3.17 pg/mL (2.77-5.27)
[2023-03-07 00:12] LABS: Thyroid Stimulating Hormone 1.26 uIU/mL (0.47-4.68)
[2023-03-07 03:11] LABS: Cholesterol HDL Ratio 3.1 ratio (0.0-4.4); Cholesterol,Total 233 mg/dL (100-199); HDL Cholesterol 74 mg/dL (>39); LDL Cholesterol Cal 145 mg/dL (0-99); Triglycerides 84 mg/dL (0-149); VLDL Cholesterol Cal 14 mg/dL (5-40)
[2023-03-08 14:52] LABS: Aspartate Aminotransferase 33 IU/L (14-36)
== END ==
PROVIDERS: PCP Nurse Practitioner Family; Referring Provider Nurse Practitioner Family; Visit Provider Nurse Practitioner Family
DX: R73.9 Hyperglycemia, unspecified (principal); E55.9 Vitamin D deficiency, unspecified; E78.5 Hyperlipidemia, unspecified; R00.2 Palpitations; R35.1 Nocturia
CPT/HCPCS: 36415; 80053; 80061; 81001; 82306; 83036; 84439; 84443; 84481; 85025; 87086

== ENCOUNTER 2023-03-08 10:04 | Emergency (ER) | payer MEDICARE, OTHER, SELFPAY ==
[2023-03-08] VITALS (7 sets, daily range): BP systolic 114–143; BP diastolic 60–72; PULSE 58–71; RESP 16–21; TEMP 36.6; O2SAT 95–97; BMI 23.1
--- NOTE | 2023-03-08 10:15 | ED.GENADULT ---
HPI - General Adult General Chief complaint: Dizziness Stated complaint: high bp, irregular heart beat, weakness Time Seen by Provider: 03/08/23 10:07 Source: patient Mode of arrival: Ambulatory Limitations: no limitations History of Present Illness HPI narrative: Patient is a 72-year-old female. She states that for the past week or so she has had occasional episodes of an irregular heartbeat. She also states that her blood pressure has been elevated. She feels generally weak. Having problems sleeping at night. No chest pain. Does occasionally have some shortness of breath. No abdominal pain or nausea or vomiting. She does take propranolol for migraines. She has been taking some extra doses of the propranolol which she states does help her blood pressure slightly but only for a very short period of time. No headaches. Has a history of mitral valve prolapse. Related Data Home Medications Medication Instructions Recorded Confirmed gabapentin 100 mg capsule 200 mg PO BEDTIME 02/17/19 02/17/19 lidocaine 5 % topical patch 1 patch topical DAILY 02/17/19 02/17/19 sleep aid sheikh PO BEDTIME 02/17/19 sumatriptan succinate 25 mg tablet 25 mg PO ONCE 02/17/19 02/17/19 Previous Rx's Medication Instructions Recorded benzonatate 100 mg capsule 100 mg PO BID PRN cough #20 caps 02/08/22 Allergies Allergy/AdvReac Type Severity Reaction Status Date / Time azithromycin [AZITHROMYCIN] Allergy Unknown Verified 03/08/23 12:56 Review of Systems Review of Systems ROS Unobtainable: All systems reviewed & are unremarkable except as noted in HPI and below Patient History Surgical History History of removal of ovarian cyst History of fusion of cervical spine Family History Son Migraine Father Prostate CA Mother Diverticulitis Sister Basal cell carcinoma Social History Smoking Status: Never smoker Smoking Status: Never smoker alcohol intake frequency: 0-2 drinks per day Substance Use Type: does not use Exam Initial Vital Signs Initial Vital Signs: Vital Signs Pulse Rate 69 03/08/23 10:09 Pulse Oximetry 95 03/08/23 10:09 Const General: cooperative, comfortable and No ill appearing HENSD Head: normal to inspection and normocephalic Resp Effort & Inspection: normal respiratory effort Auscultation: clear to auscultation bilaterally Cardio Rate: regular rate Rhythm: regular rhythm Neuro General: patient alert, patient awake and moves all extremities Cognition: normal cognition Speech: speech normal Gait: normal gait Extrem General: normal to inspection and capillary refill normal Course Orders Ordered: ED Orders 03/08/23 10:10 Complete Blood Count AUTO DIFF Stat Comprehensive Metabolic Panel Stat Lipase Stat Troponin I Stat 03/08/23 10:19 EKG-12 Lead Stat Vital Signs Vital signs: Vital Signs - 8 hr 03/08/23 10:09 03/08/23 10:11 03/08/23 10:11 Temperature Pulse Rate 69 71 Respiratory Rate 20 Blood Pressure 143/72 H Pulse Oximetry 95 97 Oxygen Delivery Method 03/08/23 10:12 03/08/23 10:30 03/08/23 10:30 Temperature 97.8 F Pulse Rate 66 61 Respiratory Rate 16 21 Blood Pressure 143/72 H 130/60 Pulse Oximetry 96 96 Oxygen Delivery Method Room Air 03/08/23 11:00 03/08/23 11:00 03/08/23 11:30 Temperature Pulse Rate 59 L Respiratory Rate 17 Blood Pressure 114/64 126/64 Pulse Oximetry 95 Oxygen Delivery Method 03/08/23 11:31 Temperature Pulse Rate 58 L Respiratory Rate Blood Pressure Pulse Oximetry 97 Oxygen Delivery Method Medical Decision Making Lab Data Lab results reviewed: Yes I reviewed the patient's lab results. 03/08/23 10:10 03/08/23 10:10 Labs: Lab Results 03/08/23 Range/Units 10:10 WBC 8.6 (4.5-11.0) X10^3/uL RBC 4.90 (4.0-5.2) X10^6/uL Hgb 15.1 (12.0-16.0) g/dL Hct 44.8 (36-46) % MCV 91.4 (80-100) fL MCH 30.8 (26-34) PG MCHC 33.7 (30-36) % RDW 13.5 (11.6-14.8) % Plt Count 318 (150-400) X10^3/uL Neut % (Auto) 72.3 (50-75) % Lymph % (Auto) 18.9 L (25-40) % [place] % (Auto) 7.0 (3-14) % Eos % (Auto) 0.6 L (2-4) % Baso % (Auto) 1.2 (0-2) % Neut # (Auto) 6200 (7537-0887) /uL Lymph # (Auto) 1600 (9706-0701) /uL [place] # (Auto) 600 (0-900) /uL Eos # (Auto) 0 (0-450) /uL Baso # (Auto) 100 (0-100) /uL Sodium 139 (137-145) mmol/L Potassium 4.2 (3.4-5.1) mmol/L Chloride 103 (98-107) mmol/L Carbon Dioxide 28 (22-32) mmol/L BUN 12 (7-17) mg/dL Creatinine 0.61 (0.52-1.04) mg/dL Estimated GFR > 60 (>60) mL/min BUN/Creatinine Ratio 19.7 (6-22) Glucose 120 H (80-110) mg/dL Calcium 10.0 (8.4-10.2) mg/dL Total Bilirubin 0.6 (0.2-1.3) mg/dL AST 34 (14-36) IU/L ALT 22 (<35) IU/L Alkaline Phosphatase 49 (38-126) U/L Troponin I < 0.012 (0.01-0.034) ng/mL Total Protein 8.0 (6.3-8.2) g/dL Albumin 4.4 (3.5-5.0) g/dL Globulin 3.6 (1.7-4.1) g/dL Albumin/Globulin Ratio 1.2 (1.0-2.8) Lipase 67 (23-300) U/L ECG Data Attestation: I personally reviewed and interpreted this ECG as follows: Interpretation: Sinus rhythm Ventricular rate is 60 Left axis deviation Normal QRS Normal QTC Nonspecific ST T wave changes MDM Narrative Medical decision making narrative: Patient has been in sinus rhythm since arrival here in the emergency department. Her blood pressure initially was somewhat elevated however improved without specific intervention. Labs are unremarkable. Electrolytes unremarkable. Advised the patient that she needs to talk with her primary doctor about a follow-up to discuss a Holter monitor. We discussed taking her blood pressure at home and recording the numbers so that she can follow up with her primary doctor as well. She was given return precautions. She expressed understanding and agreement. Discharge Plan Departure Patient Disposition: Home Clinical Impression: Hypertension, Palpitation Prescriptions: No Action benzonatate 100 mg capsule 100 mg PO BID PRN (Reason: cough) Qty: 20 0RF sumatriptan succinate 25 mg tablet 25 mg PO ONCE gabapentin 100 mg capsule 200 mg PO BEDTIME sleep aid sheikh PO BEDTIME lidocaine 5 % adhesive patch,medicated 1 patch TOP DAILY Referrals: Carolyne Jacob RN [Primary Care Provider] - Stand Alone Forms: Patient Portal/API
[2023-03-08 10:23] LABS: Add Manual Diff / Slide Review NO; Basophils Absolute Auto 100 /uL (0-100); Basophils Percent Auto 1.2 % (0-2); Eosinophils Absolute Auto 0 /uL (0-450); Eosinophils Percent Auto 0.6 % (2-4); Hematocrit 44.8 % (36-46); Hemoglobin 15.1 g/dL (12.0-16.0); Lymphocytes Absolute Auto 1600 /uL (1100-4500); Lymphocytes Percent Auto 18.9 % (25-40); Mean Corpuscular HGB Conc 33.7 % (30-36); Mean Corpuscular Hemoglobin 30.8 PG (26-34); Mean Corpuscular Volume 91.4 fL (80-100); Monocytes Absolute Auto 600 /uL (0-900); Neutrophils Absolute Auto 6200 /uL (1500-7000); Neutrophils Percent Auto 72.3 % (50-75); Platelet Count 318 X10^3/uL (150-400); Red Cell Distribution Width 13.5 % (11.6-14.8); White Blood Cell Count 8.6 X10^3/uL (4.5-11.0)
[2023-03-08 10:32] LABS: Alanine Aminotransferase 22 IU/L (<35); Albumin 4.4 g/dL (3.5-5.0); Albumin Globulin Ratio 1.2 (1.0-2.8); Alkaline Phosphatase 49 U/L (38-126); BUN Creatinine Ratio 19.7 (6-22); Bilirubin Total 0.6 mg/dL (0.2-1.3); Blood Urea Nitrogen 12 mg/dL (7-17); Carbon Dioxide 28 mmol/L (22-32); Chloride 103 mmol/L (98-107); Estimated Glomerular Filt Rate > 60 mL/min (>60); Globulin 3.6 g/dL (1.7-4.1); Glucose 120 mg/dL (80-110); HEMOLYSIS < 15 (0-50); Lipase 67 U/L (23-300); Potassium 4.2 mmol/L (3.4-5.1); Sodium 139 mmol/L (137-145)
[2023-03-08 10:43] LABS: Troponin I < 0.012 ng/mL (0.01-0.034)
[2023-03-08 15:22] LABS: Aspartate Aminotransferase 34 IU/L (14-36)
== END 2023-03-08 11:38 | disposition home or self-care (01) ==
LOC: ED 10:09
PROVIDERS: Emergency Provider Emergency Medicine; PCP Nurse Practitioner Family
DX: R00.2 Palpitations (principal); I10 Essential (primary) hypertension; R42 Dizziness and giddiness; R06.02 Shortness of breath; R07.89 Other chest pain
CPT/HCPCS: 36415; 71045; 80053; 82550; 83690; 83735; 84484; 85025; 85610; 85730; 93005; 99283; 99284

== ENCOUNTER 2023-03-08 12:52 | Emergency (ER) | payer MEDICARE, OTHER, SELFPAY ==
[2023-03-08 12:56] VITALS: BP 153/88; PULSE 82; RESP 17; TEMP 36.1; O2SAT 98; BMI 23.1
--- NOTE | 2023-03-08 12:58 | DI.RAD.S_ITS ---
PROCEDURE: XR CHEST 1V INDICATIONS: chest pain TECHNIQUE: One view of the chest was acquired. COMPARISON: [facility], CR, XR CHEST 1V, 04/18/2019, 20:22. FINDINGS: Surgical changes and devices: Partially evaluated lower cervical hardware. Lungs and pleura: Lungs are clear. No pleural effusions or pneumothorax. Mediastinum: Mediastinal contours appear normal. Heart size is normal. Bones and chest wall: No suspicious bony lesions. Overlying soft tissues appear unremarkable. IMPRESSION: No acute cardiopulmonary abnormality is seen. Dictated by: Laurence Anand M.D. on 03/08/2023 at 14:54 Approved by: Laurence Anand M.D. on 03/08/2023 at 14:54
[2023-03-08] MEDS: ASPIRIN 81 MG CHEW TAB 324 MG PO (13:26)
[2023-03-08 13:31] LABS: Add Manual Diff / Slide Review NO; Basophils Absolute Auto 100 /uL (0-100); Basophils Percent Auto 1.3 % (0-2); Eosinophils Absolute Auto 0 /uL (0-450); Eosinophils Percent Auto 0.5 % (2-4); Hemoglobin 14.8 g/dL (12.0-16.0); Lymphocytes Absolute Auto 1900 /uL (1100-4500); Lymphocytes Percent Auto 23.7 % (25-40); Mean Corpuscular HGB Conc 33.7 % (30-36); Mean Corpuscular Hemoglobin 30.9 PG (26-34); Mean Corpuscular Volume 91.6 fL (80-100); Monocytes Absolute Auto 600 /uL (0-900); Monocytes Percent Auto 7.2 % (3-14); Neutrophils Absolute Auto 5400 /uL (1500-7000); Neutrophils Percent Auto 67.3 % (50-75); Platelet Count 302 X10^3/uL (150-400); Red Cell Distribution Width 13.2 % (11.6-14.8); White Blood Cell Count 8.1 X10^3/uL (4.5-11.0)
[2023-03-08 13:32] LABS: INR 1.1 (0.9-1.3); Prothrombin Time 12.4 SECONDS (9.4-12.5)
[2023-03-08 13:35] LABS: PTT Partial Thromboplastin Tim 28 SECONDS (25.1-36.5)
--- NOTE | 2023-03-08 13:35 | PC.NURSE ---
Pt reports having a sudden onset episode of substernal chest pain which started out at a 10/10 pain, pressure scale, and over the course of 10minutes the chest pain resolved. Pt denies nausea, SOB, but states has been lightheaded at home. Pt took 1x baby aspirin this morning. Pt's was driving her to an ultrasound appointment at the hospital today and she decided to go to the ER for the chest pain then.
[2023-03-08 13:37] VITALS: BP 123/58; PULSE 63; RESP 16; O2SAT 96
[2023-03-08 13:37] LABS: Alanine Aminotransferase 21 IU/L (<35); Albumin 4.4 g/dL (3.5-5.0); Albumin Globulin Ratio 1.3 (1.0-2.8); Alkaline Phosphatase 48 U/L (38-126); Aspartate Aminotransferase 26 IU/L (14-36); BUN Creatinine Ratio 21.3 (6-22); Bilirubin Total 0.6 mg/dL (0.2-1.3); Blood Urea Nitrogen 13 mg/dL (7-17); Calcium 9.7 mg/dL (8.4-10.2); Carbon Dioxide 26 mmol/L (22-32); Chloride 104 mmol/L (98-107); Creatine Kinase 56 U/L (30-135); Estimated Glomerular Filt Rate > 60 mL/min (>60); Globulin 3.4 g/dL (1.7-4.1); Glucose 154 mg/dL (80-110); HEMOLYSIS < 15 (0-50); Lipase 59 U/L (23-300); Magnesium 2.1 mg/dL (1.6-2.3); Potassium 3.9 mmol/L (3.4-5.1); Sodium 139 mmol/L (137-145); Total Protein 7.8 g/dL (6.3-8.2)
[2023-03-08 13:48] LABS: Troponin I < 0.012 ng/mL (0.01-0.034)
--- NOTE | 2023-03-08 14:07 | ED.CHESTPAIN ---
HPI - Chest Pain General Chief Complaint: Chest Pain Stated Complaint: chest pain Time Seen by Provider: 03/08/23 13:13 Source: patient Mode of arrival: Ambulatory Limitations: no limitations History of Present Illness HPI narrative: Patient is a 72-year-old female. I evaluated her here in the emergency department just a couple hours ago for palpitations and hypertension. She had an unremarkable workup and was discharged home. She states she was in the car going to get her thyroid ultrasound which was scheduled today when she states she got left-sided chest discomfort. Lasted several minutes but less than 1 hour. She stated that she did think that her heart was beating erratically during that time. She took her blood pressure and stated that it was ?low? then she took it again and it was ?high? she states that the chest discomfort stopped after arrival here to the ER. At the time of my evaluation she was not having any symptoms. Related Data Home Medications Medication Instructions Recorded Confirmed gabapentin 100 mg capsule 200 mg PO BEDTIME 02/17/19 02/17/19 lidocaine 5 % topical patch 1 patch topical DAILY 02/17/19 02/17/19 sleep aid sheikh PO BEDTIME 02/17/19 sumatriptan succinate 25 mg tablet 25 mg PO ONCE 02/17/19 02/17/19 Previous Rx's Medication Instructions Recorded benzonatate 100 mg capsule 100 mg PO BID PRN cough #20 caps 02/08/22 Allergies Allergy/AdvReac Type Severity Reaction Status Date / Time azithromycin [AZITHROMYCIN] Allergy Unknown Verified 03/08/23 12:56 Review of Systems Review of Systems ROS Unobtainable: All systems reviewed & are unremarkable except as noted in HPI and below Patient History Surgical History History of removal of ovarian cyst History of fusion of cervical spine Family History Son Migraine Father Prostate CA Mother Diverticulitis Sister Basal cell carcinoma Social History Smoking Status: Never smoker Smoking Status: Never smoker alcohol intake frequency: 0-2 drinks per day Substance Use Type: does not use Exam Initial Vital Signs Initial Vital Signs: Vital Signs Temperature 97.0 F L 03/08/23 12:56 Pulse Rate 82 03/08/23 12:56 Respiratory Rate 17 03/08/23 12:56 Blood Pressure 153/88 H 03/08/23 12:56 Pulse Oximetry 98 03/08/23 12:56 Oxygen Delivery Method Room Air 03/08/23 12:56 Const General: cooperative, comfortable and No ill appearing HENMT Head: normal to inspection and normocephalic Resp Effort & Inspection: normal respiratory effort Auscultation: clear to auscultation bilaterally Cardio Rate: regular rate Skin General: no rashes or lesions noted Neuro General: patient alert, patient awake and moves all extremities Extrem General: capillary refill normal Scores HEART Score Heart Score history: Slightly Suspicious Heart Score EKG: Non-Specific repolarization disturbance Heart Score Age: > or = 65 years old Heart Score risk factors: 1-2 risk factors Heart Score troponin: < or = to normal limit Heart Score Total: 4 Course Orders Ordered: ED Orders 03/08/23 12:58 XR chest 1V Stat 03/08/23 13:01 EKG-12 Lead Stat 03/08/23 13:15 Complete Blood Count AUTO DIFF Stat Comprehensive Metabolic Panel Stat Lipase Stat Magnesium Stat PTT Partial Thromboplastin [place] Stat Prothrombin Time INR Stat Troponin & CK Cardiac Panel Stat 03/08/23 15:22 Troponin & CK Cardiac Panel Stat Discontinued Medications Aspirin (Aspirin 81 Mg Chew Tab) 324 mg PO NOW ONE Stop: 03/08/23 12:59 Last Admin: 03/08/23 13:26 Dose: 243 mg Documented By: BRENDA Vital Signs Vital signs: Vital Signs - 8 hr 03/08/23 12:56 03/08/23 13:37 03/08/23 15:00 Temperature 97.0 F L Pulse Rate 82 63 60 Respiratory Rate 17 16 16 Blood Pressure 153/88 H 123/58 L 128/60 Pulse Oximetry 98 96 97 Oxygen Delivery Method Room Air Room Air Room Air 03/08/23 15:30 03/08/23 16:28 Temperature Pulse Rate 59 L 67 Respiratory Rate 16 14 Blood Pressure 130/60 122/63 Pulse Oximetry 96 97 Oxygen Delivery Method Room Air Room Air MDM - Chest Pain Medical Records Data Attestation: I reviewed the patient's medical records. Lab Data Attestation: I reviewed the patient's lab results. 03/08/23 13:15 03/08/23 13:15 Labs: Lab Results 03/08/23 03/08/23 Range/Units 13:15 15:22 WBC 8.1 (4.5-11.0) X10^3/uL RBC 4.80 (4.0-5.2) X10^6/uL Hgb 14.8 (12.0-16.0) g/dL Hct 44.0 (36-46) % MCV 91.6 (80-100) fL MCH 30.9 (26-34) PG MCHC 33.7 (30-36) % RDW 13.2 (11.6-14.8) % Plt Count 302 (150-400) X10^3/uL Neut % (Auto) 67.3 (50-75) % Lymph % (Auto) 23.7 L (25-40) % [place] % (Auto) 7.2 (3-14) % Eos % (Auto) 0.5 L (2-4) % Baso % (Auto) 1.3 (0-2) % Neut # (Auto) 5400 (7383-5470) /uL Lymph # (Auto) 1900 (2624-4872) /uL [place] # (Auto) 600 (0-900) /uL Eos # (Auto) 0 (0-450) /uL Baso # (Auto) 100 (0-100) /uL PT 12.4 (9.4-12.5) SECONDS INR 1.1 (0.9-1.3) APTT 28 (25.1-36.5) SECONDS Sodium 139 (137-145) mmol/L Potassium 3.9 (3.4-5.1) mmol/L Chloride 104 (98-107) mmol/L Carbon Dioxide 26 (22-32) mmol/L BUN 13 (7-17) mg/dL Creatinine 0.61 (0.52-1.04) mg/dL Estimated GFR > 60 (>60) mL/min BUN/Creatinine Ratio 21.3 (6-22) Glucose 154 H (80-110) mg/dL Calcium 9.7 (8.4-10.2) mg/dL Magnesium 2.1 (1.6-2.3) mg/dL Total Bilirubin 0.6 (0.2-1.3) mg/dL AST 26 (14-36) IU/L ALT 21 (<35) IU/L Alkaline Phosphatase 48 (38-126) U/L Total Creatine Kinase 56 52 (30-135) U/L Troponin I < 0.012 < 0.012 (0.01-0.034) ng/mL Total Protein 7.8 (6.3-8.2) g/dL Albumin 4.4 (3.5-5.0) g/dL Globulin 3.4 (1.7-4.1) g/dL Albumin/Globulin Ratio 1.3 (1.0-2.8) Lipase 59 (23-300) U/L Imaging Data Chest x-ray: Radiologist's Impression: PROCEDURE: XR CHEST 1V INDICATIONS: chest pain TECHNIQUE: One view of the chest was acquired. COMPARISON: [facility], , XR CHEST 1V, 04/18/2019, 20:22. FINDINGS: Surgical changes and devices: Partially evaluated lower cervical hardware. Lungs and pleura: Lungs are clear. No pleural effusions or pneumothorax. Mediastinum: Mediastinal contours appear normal. Heart size is normal. Bones and chest wall: No suspicious bony lesions. Overlying soft tissues appear unremarkable. IMPRESSION: No acute cardiopulmonary abnormality is seen. ECG Data Attestation: I personally reviewed and interpreted this ECG as follows: Interpretation: Sinus rhythm Ventricular rate is 75 Left axis deviation Normal axis Normal QTC Nonspecific ST T wave changes Unchanged from EKG during her prior emergency department visit earlier today MDM Narrative Medical decision making narrative: Her EKG during this visit is the same as prior visit. It sinus rhythm. She has had 2- troponins here and also a negative troponin earlier today. I do have low suspicion that the discomfort is ACS. I have higher suspicion that potentially she is having an transient arrhythmia or potentially even anxiety reaction being so focused on her blood pressure and heart rate. I do feel that she does need further workup to include echocardiogram, stress test and potentially even Holter monitor. Advised that she contact her primary doctor to discuss the indications for these. She was given return precautions. Discharge Plan Departure Patient Disposition: Home Clinical Impression: Atypical chest pain Instructions: DI for Atypical Chest Pain Activity Restrictions/Additional Instructions: Recommend that you continue to take all of your medications as directed. Recommend on Saturday you contact your primary care doctor to discuss the indications for a stress test and a Holter monitor. Return to the emergency department for new symptoms. Prescriptions: No Action benzonatate 100 mg capsule 100 mg PO BID PRN (Reason: cough) Qty: 20 0RF sumatriptan succinate 25 mg tablet 25 mg PO ONCE gabapentin 100 mg capsule 200 mg PO BEDTIME sleep aid sheikh PO BEDTIME lidocaine 5 % adhesive patch,medicated 1 patch TOP DAILY Referrals: Carolyne Jacob RN [Primary Care Provider] - Stand Alone Forms: Patient Portal/API
[2023-03-08 15:00] VITALS: BP 128/60; PULSE 60; RESP 16; O2SAT 97
[2023-03-08 15:30] VITALS: BP 130/60; PULSE 59; RESP 16; O2SAT 96
[2023-03-08 15:45] LABS: Creatine Kinase 52 U/L (30-135)
[2023-03-08 15:58] LABS: Troponin I < 0.012 ng/mL (0.01-0.034)
[2023-03-08 16:28] VITALS: BP 122/63; PULSE 67; RESP 14; O2SAT 97
== END 2023-03-08 16:59 | disposition home or self-care (01) ==
PROVIDERS: Emergency Provider Emergency Medicine; PCP Nurse Practitioner Family
DX: R07.89 Other chest pain (principal)
CPT/HCPCS: 36415; 71045; 80053; 82550; 83690; 83735; 84484; 85025; 85610; 85730; 93005; 99284

== ENCOUNTER → 2023-03-22 07:39 | Outpatient (CLI) | payer MEDICARE, OTHER, SELFPAY ==
--- NOTE | 2023-03-23 01:12 | DI.NM.S_ITS ---
DATE OF SERVICE: 03/22/2023 PROCEDURE: Exercise stress test. INDICATIONS: Palpitation, dizziness. CARDIAC STRESS: Patient underwent exercise stress test under the supervision of an attending staff. She walked on Dani protocol for 9 minutes and achieved maximum heart rate of 130, which was 87% of target heart rate. Resting blood pressure 128/84 mmHg and peak blood pressure 164/90 mmHg. Achieved 10.1 METS of workload and VJ -15%. Baseline rhythm was sinus with intermittent PVCs including ventricular bigeminy, which suppressed during exercise. During exercise, no significant PVCs or ventricular tachycardia or atrial fibrillation. Rare PACs and rare PVCs. No ischemic electrocardiographic changes. No chest discomfort. The patient felt fatigue. CONCLUSION: Exercise stress test is negative for inducible ischemia. Excellent exercise tolerance. VJ -15%. Normal hemodynamic response. Baseline frequent PVCs, which were suppressed during exercise. No ventricular tachycardia or atrial fibrillation. No anginal symptoms. Overall, low-risk exercise stress test. 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
== END ==
PROVIDERS: PCP Family Medicine; Referring Provider Family Medicine; Visit Provider Family Medicine
DX: R00.2 Palpitations (principal); R07.89 Other chest pain; I10 Essential (primary) hypertension
CPT/HCPCS: 93017

== ENCOUNTER 2023-03-23 19:02 | Emergency (ER) | payer MEDICARE, OTHER, SELFPAY ==
[2023-03-23 19:12] VITALS: BP 170/91; PULSE 78; RESP 16; TEMP 37.1; O2SAT 98; BMI 23.0
--- NOTE | 2023-03-23 19:26 | DI.RAD.S_ITS ---
PROCEDURE: XR CHEST 1V INDICATIONS: chest pain TECHNIQUE: One view of the chest was acquired. COMPARISON: [facility], [place], XR CHEST 1V, 03/08/2023, 13:18. [facility], CR, XR CHEST 1V, 04/18/2019, 20:22. FINDINGS: Surgical changes and devices: None. Lungs and pleura: Lungs are clear. No pleural effusions or pneumothorax. Mediastinum: Mediastinal contours appear normal. Heart size is normal. Bones and chest wall: No suspicious bony lesions. Overlying soft tissues appear unremarkable. IMPRESSION: No acute cardiopulmonary abnormality is seen. Approved by: Karthikeyan Hyde M.D. on 03/23/2023 at 20:03
[2023-03-23 19:39] VITALS: O2SAT 98
[2023-03-23 19:42] VITALS: BP 141/78; PULSE 68; RESP 21; O2SAT 96
[2023-03-23 20:00] VITALS: BP 133/60; PULSE 69; RESP 24; O2SAT 95
--- NOTE | 2023-03-23 20:08 | ED_ITS ---
HPI - General Adult General Chief complaint: Hypertension Stated complaint: BP issues/HR irregular Time Seen by Provider: 03/23/23 20:08 Source: patient and family Mode of arrival: Ambulatory Limitations: no limitations History of Present Illness HPI narrative: This is a 72-year-old female with history of migraines and nocturia who presents with complaint of blood pressure being increased on and off for the past 2 weeks. Patient states she normally takes 20 mg propranolol daily for her migraines was told by her primary care she can up to 80 mg daily if needed. Patient states Saturday she had an episode of chest pain, she has not had any since then. She was set up for stress testing and an echo as an outpatient. Met with her physician or spoke with them who had recommendations for blood pressure. She has been taking 20 mg daily sometimes 40 mg but today felt a little bit dizzy which she has had on and off for months. She has had a prior fusion states it is difficult to fully extend her neck but that is sometimes bothers her. She had headache today on the left side. She took her aspirin propranolol and resolved. She thought her blood pressure was quite high and checked it took additional doses of propranolol this evening. Her symptoms have since resolved. She denies any chest pain, no shortness of breath no nausea or vomiting. She has had some decreased appetite and notes her mouth seems dry when her blood pressure is high. Denies any swelling of her extremities. She states she was started on oxybutynin took 2 doses and stopped them seemed to kick off her symptoms as well as medication to help zumatriptan sublingual every other day. She states surgeries had prior cervical fusion, rotator cuff, carpal tunnel, ovaries cyst, oophorectomy bilaterally. States allergy to Z-Mango. No tobacco, was drinking 3-4 glasses of wine daily in the past but has stopped for some time secondary to worsening her migraines. No recreational drugs. She has not appointment with her primary care Dr. To on Saturday. Her echo was performed at [facility] earlier this week. Her stress test was here and is reported as negative. Related Data Home Medications Medication Instructions Recorded Confirmed gabapentin 100 mg capsule 200 mg PO BEDTIME 02/17/19 03/13/23 lidocaine 5 % topical patch 1 patch topical DAILY 02/17/19 03/13/23 sleep aid sheikh PO BEDTIME 02/17/19 03/13/23 sumatriptan succinate 25 mg tablet 25 mg PO ONCE 02/17/19 03/13/23 oxybutynin chloride 5 mg tablet 5 mg PO BEDTIME PRN 03/13/23 03/13/23 Previous Rx's Medication Instructions Recorded benzonatate 100 mg capsule 100 mg PO BID PRN cough #20 caps 02/08/22 Allergies Allergy/AdvReac Type Severity Reaction Status Date / Time azithromycin [AZITHROMYCIN] Allergy Unknown Rash Verified 03/23/23 19:19 Review of Systems Review of Systems ROS Unobtainable: All systems reviewed & are unremarkable except as noted in HPI and below Patient History Surgical History History of removal of ovarian cyst History of fusion of cervical spine Family History Son Migraine Father Prostate CA Mother Diverticulitis Sister Basal cell carcinoma Social History Smoking Status: Never smoker Smoking Status: Never smoker alcohol intake frequency: a few times a week Substance Use Type: does not use Exam Narrative Exam Narrative: GEN: well nourished, well appearing female, alert and oriented x 3, patient appears to be in mild distress. Patient appear slightly anxious. HEENT: Atraumatic, pupils are equal round reactive to light, extraocular movements are intact, nares are clear, there is no conjunctival pallor. Throat is clear without any exudates, erythema, tonsillar enlargement or uvular deviation, no facial droop. HEART: Regular rate and rhythm without murmur, clicks, rubs. Pulses are equal in upper and lower extremities LUNGS:Lungs clear to auscultation, no wheezes, rales, crackles, chest moves symmetrically ABD:bowel sounds normal, soft, non-tender, no guarding, rebound, rigidity, no masses noted, no hepatosplenomegaly :No CVA tenderness MSCL: Non-tender, no muscle atrophy, muscles strength 5/5 upper and lower extremities, full range of motion, normal gait NEURO:CN 2-12 intact, sensation normal SKIN: No rash, erythema or other skin changes Initial Vital Signs Initial Vital Signs: Vital Signs Temperature 98.7 F 03/23/23 19:12 Pulse Rate 78 03/23/23 19:12 Respiratory Rate 16 03/23/23 19:12 Blood Pressure 170/91 H 03/23/23 19:12 Pulse Oximetry 98 03/23/23 19:12 Oxygen Delivery Method Room Air 03/23/23 19:12 Course Orders Ordered: ED Orders 03/23/23 19:26 XR chest 1V Stat EKG-12 Lead Stat 03/23/23 19:37 Complete Blood Count AUTO DIFF Stat Comprehensive Metabolic Panel Stat Lipase Stat Magnesium Stat PTT Partial Thromboplastin Seamus Stat Prothrombin Time INR Stat Troponin & CK Cardiac Panel Stat Vital Signs Vital signs: Vital Signs - 8 hr 03/23/23 19:12 03/23/23 19:39 03/23/23 19:42 Temperature 98.7 F Pulse Rate 78 Respiratory Rate 16 Blood Pressure 170/91 H 141/78 H Pulse Oximetry 98 98 Oxygen Delivery Method Room Air 03/23/23 19:42 03/23/23 20:00 03/23/23 20:00 Temperature Pulse Rate 68 69 Respiratory Rate 21 24 Blood Pressure 133/60 Pulse Oximetry 96 95 Oxygen Delivery Method 03/23/23 20:30 03/23/23 20:30 03/23/23 21:00 Temperature Pulse Rate 67 Respiratory Rate 18 Blood Pressure 176/83 H 155/72 H Pulse Oximetry 95 Oxygen Delivery Method 03/23/23 21:00 Temperature Pulse Rate 64 Respiratory Rate 39 H Blood Pressure Pulse Oximetry 95 Oxygen Delivery Method Medical Decision Making Lab Data 03/23/23 19:37 03/23/23 19:37 Labs: Lab Results 03/23/23 Range/Units 19:37 WBC 7.9 (4.5-11.0) X10^3/uL RBC 4.48 (4.0-5.2) X10^6/uL Hgb 14.0 (12.0-16.0) g/dL Hct 40.9 (36-46) % MCV 91.2 (80-100) fL MCH 31.2 (26-34) PG MCHC 34.2 (30-36) % RDW 13.2 (11.6-14.8) % Plt Count 300 (150-400) X10^3/uL Neut % (Auto) 67.0 (50-75) % Lymph % (Auto) 22.4 L (25-40) % [place] % (Auto) 8.2 (3-14) % Eos % (Auto) 1.1 L (2-4) % Baso % (Auto) 1.3 (0-2) % Neut # (Auto) 5300 (1566-0205) /uL Lymph # (Auto) 1800 (8749-1773) /uL [place] # (Auto) 600 (0-900) /uL Eos # (Auto) 100 (0-450) /uL Baso # (Auto) 100 (0-100) /uL PT 12.2 (9.4-12.5) SECONDS INR 1.1 (0.9-1.3) APTT 27 (25.1-36.5) SECONDS Sodium 137 (137-145) mmol/L Potassium 3.9 (3.4-5.1) mmol/L Chloride 104 (98-107) mmol/L Carbon Dioxide 25 (22-32) mmol/L BUN 14 (7-17) mg/dL Creatinine 0.63 (0.52-1.04) mg/dL Estimated GFR > 60 (>60) mL/min BUN/Creatinine Ratio 22.2 H (6-22) Glucose 126 H (80-110) mg/dL Calcium 9.7 (8.4-10.2) mg/dL Magnesium 2.2 (1.6-2.3) mg/dL Total Bilirubin 0.4 (0.2-1.3) mg/dL AST 25 (14-36) IU/L ALT 20 (<35) IU/L Alkaline Phosphatase 43 (38-126) U/L Total Creatine Kinase 71 (30-135) U/L Troponin I < 0.012 (0.01-0.034) ng/mL Total Protein 7.4 (6.3-8.2) g/dL Albumin 4.1 (3.5-5.0) g/dL Globulin 3.3 (1.7-4.1) g/dL Albumin/Globulin Ratio 1.2 (1.0-2.8) Lipase 67 (23-300) U/L Imaging Data Chest x-ray: Radiologist's Impression: Close Chest X-Ray (Signed) Karthikeyan Hyde - 03/23/23 Radiology Report (Draft) Amrik Sam - 03/23/23 Chest X-Ray (Signed) Laurence Anand - 03/08/23 Brain MRI (Signed) To Dawson - 05/04/19 Thyroid Ultrasound (Signed) Jonn Maie - 04/24/[address] (Signed) RyanJose Armando - 04/18/19 Chest X-Ray (Signed) Jose Armando Davis - 04/18/19 Echocardiogram Ultrasound (Signed) ChrislaurafernandojarredLori noble - 04/10/19 Pelvis Ultrasound (Signed) Eric Henderson - 04/01/19 Pelvis Ultrasound (Signed) Jose Armando Davis - 03/28/18 Shoulder MRI (Signed) Jamie Gaxiola - 02/26/18 Launch?Image [address] [address] XRay Report Signed Patient: Sue Xiao MR#: [id number] : 1950 Acct:[id number] Age/Sex: 72 / F Date of Service: 03/23/23 Loc: ED Accession Number: [id number] Procedure: XR chest 1V Ordering Provider: Dolores Chapman D.O. PROCEDURE: XR CHEST 1V INDICATIONS: chest pain TECHNIQUE: One view of the chest was acquired. COMPARISON: [facility], , XR CHEST 1V, 03/08/2023, 13:18. [facility], CR, XR CHEST 1V, 04/18/2019, 20:22. FINDINGS: Surgical changes and devices: None. Lungs and pleura: Lungs are clear. No pleural effusions or pneumothorax. Mediastinum: Mediastinal contours appear normal. Heart size is normal. Bones and chest wall: No suspicious bony lesions. Overlying soft tissues appear unremarkable. IMPRESSION: No acute cardiopulmonary abnormality is seen. Approved by: Karthikeyan Hyde M.D. on 03/23/2023 at 20:03 ECG Data Attestation: I personally reviewed and interpreted this ECG as follows: Prior ECG tracings: available for review Interpretation: Sinus rhythm rate of 72 WI 128 QRS 80 QTC 431. Left axis deviation. No acute ST elevation, patient has some depression lateral leads appears similar to 03/08/2023 EKG. MDM Narrative Medical decision making narrative: 72-year-old female episode of chest pain on, she has had some dizziness on and off but describes it has been going on for months. Did have a little bit of headache has known migraines but had resolved after she took aspirin propranolol. She is quite anxious about her blood pressure states it has been ranging up and down over time she did have a new medication of oxybutynin prescribed which she stopped. Patient has seen her primary care physician was scheduled for a stress test which was negative, had an echo [facility] which I do not have access. Labs shows negative CBC, negative coags, CMP is negative glucose is 126 normal renal function electrolytes, LFTs are negative. Troponin is negative. EKG shows some ST depression but appears similar to prior from 03/08/2023. Chest x-ray is negative. Discussed with patient there is some range that blood pressure will fluctuate normally. If she is running persistently elevated could start a new medication where she can follow up with primary care on Saturday. Discussed with patient she go ahead and bump her propranolol up to 40 mg daily, both of us are aware that it has not true antihypertensive medication and she is follow-up on Saturday with the primary care and they can make a final decision about medication choices. Patient's blood pressure has ranged from 170-130 back to 155. We did discuss that it is more the average over time that is important and not the individual readings. She is ambulating without issue, no persistent dizziness. She does get that typically for several months does not have any other new acute neurologic changes that are concerning today. Discharge Plan Departure Patient Disposition: Home Clinical Impression: Dizziness Activity Restrictions/Additional Instructions: Please follow up with your physician at your scheduled appointment for recheck. I would recommend you continue your home medications as prescribed. You can try taking your propranolol 40 mg once daily until you see your primary care. Please return for new or worsening symptoms, new chest pain, shortness of breath passing out, new numbness, tingling weakness, difficulty with speech or other new or concerning changes. Prescriptions: No Action benzonatate 100 mg capsule 100 mg PO BID PRN (Reason: cough) Qty: 20 0RF oxybutynin chloride 5 mg tablet 5 mg PO BEDTIME PRN sumatriptan succinate 25 mg tablet 25 mg PO ONCE gabapentin 100 mg capsule 200 mg PO BEDTIME sleep aid sheikh PO BEDTIME lidocaine 5 % adhesive patch,medicated 1 patch TOP DAILY Referrals: Jill To MD [Primary Care Provider] - Stand Alone Forms: Patient Portal/API
[2023-03-23 20:18] LABS: Add Manual Diff / Slide Review NO; Basophils Absolute Auto 100 /uL (0-100); Basophils Percent Auto 1.3 % (0-2); Eosinophils Absolute Auto 100 /uL (0-450); Eosinophils Percent Auto 1.1 % (2-4); Hematocrit 40.9 % (36-46); Lymphocytes Absolute Auto 1800 /uL (1100-4500); Lymphocytes Percent Auto 22.4 % (25-40); Mean Corpuscular HGB Conc 34.2 % (30-36); Mean Corpuscular Hemoglobin 31.2 PG (26-34); Mean Corpuscular Volume 91.2 fL (80-100); Monocytes Absolute Auto 600 /uL (0-900); Monocytes Percent Auto 8.2 % (3-14); Neutrophils Absolute Auto 5300 /uL (1500-7000); Platelet Count 300 X10^3/uL (150-400); Red Blood Cell Count 4.48 X10^6/uL (4.0-5.2); Red Cell Distribution Width 13.2 % (11.6-14.8); White Blood Cell Count 7.9 X10^3/uL (4.5-11.0)
[2023-03-23 20:19] LABS: INR 1.1 (0.9-1.3); Prothrombin Time 12.2 SECONDS (9.4-12.5)
[2023-03-23 20:21] LABS: PTT Partial Thromboplastin Tim 27 SECONDS (25.1-36.5)
[2023-03-23 20:29] LABS: Alanine Aminotransferase 20 IU/L (<35); Albumin 4.1 g/dL (3.5-5.0); Albumin Globulin Ratio 1.2 (1.0-2.8); Alkaline Phosphatase 43 U/L (38-126); Aspartate Aminotransferase 25 IU/L (14-36); BUN Creatinine Ratio 22.2 (6-22); Bilirubin Total 0.4 mg/dL (0.2-1.3); Blood Urea Nitrogen 14 mg/dL (7-17); Calcium 9.7 mg/dL (8.4-10.2); Carbon Dioxide 25 mmol/L (22-32); Chloride 104 mmol/L (98-107); Creatine Kinase 71 U/L (30-135); Estimated Glomerular Filt Rate > 60 mL/min (>60); Globulin 3.3 g/dL (1.7-4.1); Glucose 126 mg/dL (80-110); HEMOLYSIS < 15 (0-50); Lipase 67 U/L (23-300); Magnesium 2.2 mg/dL (1.6-2.3); Potassium 3.9 mmol/L (3.4-5.1); Sodium 137 mmol/L (137-145); Total Protein 7.4 g/dL (6.3-8.2)
[2023-03-23 20:30] VITALS: BP 176/83; PULSE 67; RESP 18; O2SAT 95
[2023-03-23 20:40] LABS: Troponin I < 0.012 ng/mL (0.01-0.034)
[2023-03-23 21:00] VITALS: BP 155/72; PULSE 64; RESP 39; O2SAT 95
== END 2023-03-23 21:36 | disposition home or self-care (01) ==
PROVIDERS: Emergency Provider Emergency Medicine; PCP Family Medicine
DX: R42 Dizziness and giddiness (principal); R03.0 Elevated blood-pressure reading, without diagnosis of hypertension
CPT/HCPCS: 36415; 71045; 80053; 82550; 83690; 83735; 84484; 85025; 85610; 85730; 93005; 93010; 99284

== ENCOUNTER → 2023-04-08 17:19 | Outpatient (CLI) | payer MEDICARE, OTHER, SELFPAY ==
--- NOTE | 2023-04-08 17:21 | DI.MRI.S_ITS ---
PROCEDURE: MR HEAD/BRAIN WO CON INDICATIONS: worsening dizziness, worsening migraines TECHNIQUE: Non-contrast axial T1 spin echo, axial T2 fast spin echo, sagittal and axial FLAIR, coronal T2 fast spin echo, axial gradient echo, axial diffusion and ADC through the brain. COMPARISON: [facility], MR, BRAIN WITHOUT CONTRAST, 05/19/2012, 16:51. [facility], CT, CT HEAD/BRAIN WO CON, 04/18/2019, 20:53. [facility], MR, MR STROKE, 05/04/2019, 12:17. FINDINGS: Image quality: Excellent. CSF spaces: Ventricles appear symmetric in size and shape. Basal cisterns are patent. No extra-axial fluid collections. Brain: No intracranial bleeds or mass effects. There is cerebral volume loss for age. There are periventricular and deep white matter chronic small vessel ischemic changes. Brainstem appears normal. Diffusion-weighted images show no acute infarct. No chronic ischemic insults. Normal intravascular flow voids are present. Skull and face: Calvarial bone marrow is normal in signal. Orbits are normal. Sinuses: Sinuses and mastoids are clear. IMPRESSION: Brain MRI within normal limits for age, stable from prior. No imaging explanation is found for this patient's presenting symptoms. No findings of acute or subacute infarction can be seen. No prior territorial infarct can be seen. Dictated by: Alexander Pitt M.D. on 04/08/2023 at 17:45 Approved by: Alexander Pitt M.D. on 04/08/2023 at 17:46
== END ==
PROVIDERS: PCP Family Medicine; Referring Provider Family Medicine; Visit Provider Family Medicine
DX: R42 Dizziness and giddiness (principal); G43.909 Migraine, unspecified, not intractable, without status migrainosus
CPT/HCPCS: 70551

== ENCOUNTER → 2023-04-09 08:30 | Outpatient (CLI) | payer MEDICARE, OTHER, SELFPAY ==
--- NOTE | 2023-04-09 | DI.US.S_ITS ---
PROCEDURE: US THYROID INDICATIONS: Nontoxic multinodular goiter TECHNIQUE: Real-time scanning was performed of the thyroid gland, with image documentation. COMPARISON: [facility], US, US THYROID, 04/24/2019, 10:11. FINDINGS: Right: Thyroid lobe measures 5.0 x 1.7 x 1.7 cm, and is homogeneous in echotexture. Left: Thyroid lobe measures 4.8 x 1.8 x 1.6 cm, and is homogenous in echotexture. Isthmus: 2.4 cm thick. Nodule number: 1 Location: Left superior no Size: 1.0 x 0.7 x 0.6 cm compared to 1.0 x 0.7 x 0.7 cm. Composition: Solid Echogenicity: Hypoechoic Shape: wider than tall. Margins: Smooth Echogenic foci: None Total points: 4 ACR TI-RADS category: 4 Nodule number: 2 Location: The left medial isthmus Size: 0.8 x 0.4 x 0.7 cm compared to 0.8 x 0.4 by 0.7 cm. Composition: Solid Echogenicity: Hypoechoic Shape: wider than tall. Margins: Smooth Echogenic foci: Solid Total points: 4 ACR TI-RADS category: 4 Nodule number: 3 Location: Right superior Size: 1.1 x 0.6 x 0.8 cm compared to 1.3 x 0.7 x 1.1 cm. Composition: Solid Echogenicity: Hypoechoic Shape: wider than tall. Margins: Smooth Echogenic foci: None Total points: 4 ACR TI-RADS category: 4 IMPRESSION: Stable interval exam demonstrating Category 4 lesions. Secondary to size, lesion 2 recommends no additional follouwp. Followup of lesions 1 and 3 are at 1, 2, 3 and 5 years as below. ACR TI-RADS definitions and recommendations: TI-RADS 1 (benign): 0 points. FNA not needed. TI-RADS 2 (not suspicious): 2 points. FNA not needed. TI-RADS 3 (mildly suspicious): 3 points. * FNA if 2.5 cm or larger, follow up if 1.5 cm or larger (at 1, 3, and 5 years). TI-RADS 4 (moderately suspicious): 4-6 points. * FNA if 1.5 cm or larger, follow up if 1 cm or larger (at 1, 2, 3, and 5 years). TI-RADS 5 (highly suspicious): 7 points or more. * FNA if 1 cm or larger, follow up if 0.5 cm or larger (every year for 5 years). Dictated by: Sania Quinones M.D. on 04/09/2023 at 12:31 Approved by: Sania Quinones M.D. on 04/09/2023 at 12:40
== END ==
LOC: US 08:31
PROVIDERS: PCP Family Medicine; Referring Provider Nurse Practitioner Family; Visit Provider Nurse Practitioner Family
DX: E04.2 Nontoxic multinodular goiter (principal)
CPT/HCPCS: 76536

== ENCOUNTER → 2023-06-05 09:57 | Outpatient (CLI) | payer MEDICARE, OTHER, SELFPAY ==
[2023-06-05 10:48] LABS: COVID-19 CEPHEID 4-PLEX PCR Negative (Negative); Influenza A - CEPHEID Flu A NEGATIVE (NEGATIVE); Influenza B - CEPHEID Flu B NEGATIVE (NEGATIVE); Respiratory Syncytial Virus Negative (Negative)
== END ==
PROVIDERS: PCP Family Medicine; Visit Provider Student in an Organized Health Care Education/Training Program
DX: R05.9 Cough, unspecified (principal)
CPT/HCPCS: 0241U

== ENCOUNTER → 2023-06-06 11:21 | Outpatient (CLI) | payer MEDICARE, OTHER, SELFPAY ==
--- NOTE | 2023-06-06 11:22 | DI.RAD.S_ITS ---
PROCEDURE: XR CHEST 2V INDICATIONS: cough greater than 3 weeks TECHNIQUE: 2 views of the chest were acquired. COMPARISON: [facility], CR, XR CHEST 1V, 03/23/2023, 19:43. FINDINGS: Surgical changes and devices: None. Lungs and pleura: Lungs are clear. No pleural effusions or pneumothorax. Mediastinum: Mediastinal contours are normal. Heart size is normal. Bones and chest wall: No suspicious bony abnormalities. Soft tissues appear unremarkable. IMPRESSION: No acute cardiopulmonary abnormality is seen. Dictated by: Jose Armando Davis M.D. on 06/06/2023 at 12:08 Approved by: Jose Armando Davis M.D. on 06/06/2023 at 12:08
== END ==
PROVIDERS: PCP Family Medicine; Referring Provider Student in an Organized Health Care Education/Training Program; Visit Provider Student in an Organized Health Care Education/Training Program
DX: R05.8 Other specified cough (principal)
CPT/HCPCS: 71046

== ENCOUNTER → 2024-04-11 08:27 | Outpatient (CLI) | payer MEDICARE, OTHER, SELFPAY ==
[2024-04-11 11:37] LABS: Cholesterol 268 mg/dL (140-199); HDL Cholesterol 67 mg/dL (40-60); LDL Cholesterol Calculated 184 mg/dL (<100); Triglycerides 87 mg/dL (35-150)
== END ==
PROVIDERS: PCP Family Medicine; Referring Provider Internal Medicine Cardiovascular Disease; Visit Provider Internal Medicine Cardiovascular Disease
DX: E78.5 Hyperlipidemia, unspecified (principal)
CPT/HCPCS: 36415; 80061

== ENCOUNTER 2025-03-02 09:17 | Emergency (ER) | payer MEDICARE, OTHER, SELFPAY ==
--- OUTSIDE RECORDS SUMMARY | 2025-03-02 09:21 | XMS_ITS | Encounter Summary ---
Author Organization [facility] Address [address] [place] [id number] Care Team Providers Care Nuclear Equipment Operator Name Role Phone Len Frankel MD Primary Care Provider [phone] Encounter Details Date Type Department Care Team (Late st Contact Info) Description 03/18/2024 Scanned Document SCANNED ONLY Scanned, Document Social History Tobacco Use Types Packs/Day Years Used Date Smoking Tobacco: Never Smokeless Tobacco: Never Alcohol Use Standard Drinks/Week Comments Yes 3 (1 standard drink = 0.6 oz pur e alcohol) weekly/ Occ Depression Answer Date Recorded Last PHQ Score 0 09/07/2021 Comments No Sex and Gender Information Value Date Recorded Sex Assigned at Not on file Legal Sex Female 4:05 PM PDT Gender Identity Not on file Sexual Orientation Not on file documented as of this encounter Plan of Treatment Not on file documented as of this encounter Visit Diagnoses Not on filedocumented in this encounter Care Teams Nuclear Equipment Operator Relationship Specialty Start Date End Date Len Frankel MD [address] [id number] PCP - General Internal Medicine 07/23/22 documented as of this encounter
[2025-03-02 09:38] VITALS: BP 147/68; PULSE 67; RESP 18; TEMP 37; O2SAT 99; BMI 21.4
--- NOTE | 2025-03-02 09:42 | EKG_ITS ---
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
[2025-03-02 09:58] VITALS: PULSE 62; O2SAT 98
[2025-03-02 10:00] VITALS: BP 139/65; PULSE 60; RESP 23; O2SAT 98
[2025-03-02 10:03] LABS: Add Manual Diff / Slide Review NO; Hematocrit 44.9 % (36-46); Hemoglobin 15.2 g/dL (12.0-16.0); Lymphocytes Absolute Auto 1500 /uL (1100-4500); Mean Corpuscular HGB Conc 33.9 % (30-36); Mean Corpuscular Hemoglobin 31.2 PG (26-34); Mean Corpuscular Volume 92.1 fL (80-100); Platelet Count 308 X10^3/uL (150-400)
--- NOTE | 2025-03-02 10:03 | ED.ABDPAIN ---
HPI - Abdominal Pain General Chief Complaint: Abdominal Pain Stated Complaint: lower left abdominal pain 3 weeks Time Seen by Provider: 03/02/25 10:02 Source: patient Mode of arrival: Family Vehicle History of Present Illness HPI narrative: Patient is a 74-year-old female presenting today visit ongoing left lower quadrant pain. She reports it has been there for about 3 weeks. She has had some bouts of mucus diarrhea, nonbloody. Thought to be due to some antacid medication. At some point she had some vaginal bleeding which has subsequently cleared. But has a consistent dull ache in her left lower quadrant. Denies any nausea vomiting or fever. She says that she has had a colonoscopy about 3 years ago they removed a polyp she was not told to have 1 any sooner. Related Data Home Medications ?Medication ?Instructions ?Recorded ?Confirmed sleep aid sheikh PO BEDTIME 02/17/19 06/05/23 propranolol 60 mg capsule,24 60 mg PO DAILY 04/12/23 06/05/23 hr,extended release rosuvastatin 5 mg tablet mg PO DAILY 04/12/23 06/05/23 vibegron 75 mg tablet (Gemtesa) 75 mg PO DAILY 04/25/23 06/05/23 Previous Rx's ?Medication ?Instructions ?Recorded venlafaxine 37.5 mg 37.5 mg PO DAILY #60 caps 04/05/23 capsule,extended release 24 hr estradiol 0.01% (0.1 mg/gram) 1 g vaginal DAILY #42.5 grams 04/25/23 vaginal cream (Estrace) fluticasone propionate 50 1 spray intranasal DAILY #16 grams 04/25/23 mcg/actuation nasal spray,suspension (Flonase Allergy Relief) sumatriptan succinate 25 mg tablet 25 mg PO .COMPLEX PRN migraine 05/22/23 headache #30 tabs gabapentin 100 mg capsule 200 mg (2 x 100 mg) PO BEDTIME #60 06/12/23 caps ipratropium bromide 21 mcg (0.03 2 spray intranasal BID #30 mL 07/08/23 %) nasal spray metoprolol succinate 50 mg 25 mg (1/2 x 50 mg) PO DAILY #30 07/08/23 tablet,extended release 24 hr tabs Allergies Allergy/AdvReac Type Severity Reaction Status Date / Time azithromycin (AZITHROMYCIN) Allergy Unknown Rash Verified 03/02/25 09:38 Patient History Medical History Thyroid nodule Dizziness Postnasal drip Insomnia MVP (mitral valve prolapse) Neck stiffness Hot flashes Dysphagia Bloating symptom Labile blood pressure PVC (premature ventricular contraction) Hypertension Surgical History History of removal of ovarian cyst History of fusion of cervical spine Family History Son Migraine Father Prostate CA Mother Diverticulitis Sister Basal cell carcinoma Social History Smoking Status: Never smoker Smoking Status: Never smoker alcohol intake frequency: a few times a week Alcohol type: wine Exam Initial Vital Signs Initial Vital Signs: Vital Signs Temperature 98.6 F 03/02/25 09:38 Pulse Rate 67 03/02/25 09:38 Respiratory Rate 18 03/02/25 09:38 Blood Pressure 147/68 H 03/02/25 09:38 Pulse Oximetry 99 03/02/25 09:38 Oxygen Delivery Method Room Air 03/02/25 09:38 GENERAL: Alert well-appearing 74-year-old female and in no acute distress. HEENT: Head atraumatic,EOMI, pupils reactive, face symmetric, moist mucous membranes CARDIOVASCULAR: Regular rate and rhythm without murmurs, rubs or gallops. RESPIRATORY: Breath sounds equal bilaterally, no wheezes rales or rhonchi. ABDOMEN: Soft, mild left lower quadrant pain no guarding no rebound no peritoneal signs EXTREMITIES: Normal range of motion, no clubbing or edema. Neurovascularly intact NEUROLOGICAL: Alert and oriented x4.Normal gait and speech. Cranial nerves II through XII grossly intact. SKIN: Warm, dry, no laceration, no petechiae, no rashes or lesions. Course Orders Ordered: ED Orders 03/02/25 09:42 EKG-12 Lead Stat 03/02/25 09:46 Complete Blood Count AUTO DIFF Stat Comprehensive Metabolic Panel Stat Lipase Stat 03/02/25 10:09 CT abdomen pelvis w con Stat Discontinued Medications Ondansetron HCl (Ondansetron 4 Mg/2 Ml Inj) 4 mg IV NOW PRN PRN Reason: Nausea And Vomiting Ondansetron HCl (Ondansetron 4 Mg Odt) 4 mg PO NOW PRN PRN Reason: Nausea And Vomiting Vital Signs Vital signs: Vital Signs - 8 hr 03/02/25 09:38 03/02/25 09:58 03/02/25 10:00 Temperature 98.6 F Pulse Rate 67 62 60 Respiratory Rate 18 23 Blood Pressure 147/68 H Pulse Oximetry 99 98 98 Oxygen Delivery Method Room Air 03/02/25 10:00 03/02/25 10:37 03/02/25 10:43 Temperature Pulse Rate 60 65 Respiratory Rate 19 Blood Pressure 139/65 Pulse Oximetry 98 98 Oxygen Delivery Method 03/02/25 10:43 03/02/25 11:00 03/02/25 11:00 Temperature Pulse Rate 62 Respiratory Rate 20 Blood Pressure 140/83 128/65 Pulse Oximetry 98 Oxygen Delivery Method MDM - Abdominal Pain Lab Data 03/02/25 09:46 03/02/25 09:46 Labs: Lab Results 03/02/25 Range/Units 09:46 WBC 8.6 (4.5-11.0) X10^3/uL RBC 4.88 (4.0-5.2) X10^6/uL Hgb 15.2 (12.0-16.0) g/dL Hct 44.9 (36-46) % MCV 92.1 (80-100) fL MCH 31.2 (26-34) PG MCHC 33.9 (30-36) % RDW 13.6 (11.6-14.8) % Plt Count 308 (150-400) X10^3/uL Neut % (Auto) 70.8 (50-75) % Lymph % (Auto) 18.0 L (25-40) % [place] % (Auto) 8.5 (3-14) % Eos % (Auto) 1.6 L (2-4) % Baso % (Auto) 1.1 (0-2) % Neut # (Auto) 6100 (4714-0202) /uL Lymph # (Auto) 1500 (7624-0927) /uL [place] # (Auto) 700 (0-900) /uL Eos # (Auto) 100 (0-450) /uL Baso # (Auto) 100 (0-100) /uL Sodium 140 (137-145) mmol/L Potassium 4.0 (3.4-5.1) mmol/L Chloride 104 (98-107) mmol/L Carbon Dioxide 28 (22-32) mmol/L BUN 20 H (7-17) mg/dL Creatinine 0.67 (0.52-1.04) mg/dL Estimated GFR > 60 (>60) mL/min BUN/Creatinine Ratio 29.9 H (6-22) Glucose 106 H (70-99) mg/dL Calcium 9.4 (8.4-10.2) mg/dL Total Bilirubin 0.7 (0.2-1.3) mg/dL AST 29 (14-36) IU/L ALT 21 (<35) IU/L Alkaline Phosphatase 53 (38-126) U/L Total Protein 8.4 H (6.3-8.2) g/dL Albumin 4.7 (3.5-5.0) g/dL Globulin 3.7 (1.7-4.1) g/dL Albumin/Globulin Ratio 1.3 (1.0-2.8) Lipase 74 (23-300) U/L Point of care testing: Urine Dip Bedside Urine Glucose Negative Bedside Urine Bilirubin - Negative Bedside Urine Ketone - Negative Urine Specific [place] 1.005 Bedside Urine Occult Blood - Negative Bedside Urine pH 6.5 Bedside Urine Protein - Negative Bedside Urine Urobilinogen - Negative Bedside Urine Nitrite - Negative Bedside Urine Leukocytes - Negative Esterase Imaging Data CT scan - abdomen/pelvis: Radiologist's Impression: PROCEDURE: CT ABDOMEN PELVIS W CON INDICATIONS: LLQ pain TECHNIQUE: After the administration of intravenous contrast, axial sections acquired from the lung bases to the pubic symphysis. Coronal and sagittal reformats were performed. For radiation dose reduction, the following was used: automated exposure control, adjustment of mA and/or kV according to patient size. COMPARISON: None. FINDINGS: Image quality: Diagnostic Lower chest: Basal atelectasis. Trace hiatal hernia. Heart size is at the upper limit of normal. Liver: Unremarkable Gallbladder and biliary system: Unremarkable, nondilated Pancreas: No ductal dilation Spleen: Nonenlarged Adrenals: No discrete nodules Kidneys: No solid renal mass. Bilateral extrarenal pelvis. No obstructing calcified stone or hydronephrosis. Vessels and lymph nodes: No abdominal aortic aneurysm. The main portal vein is patent. Mild aortoiliac atherosclerotic calcifications. No lymphadenopathy by size criteria. Bowel and peritoneum: No bowel obstruction. No drainable abscess or ascites. Colonic diverticula. No significant focal diverticular inflammation. Moderate overall colonic fecal loading. Mild segmental areas of colonic wall thickening, most notably at the hepatic flexure and mid sigmoid. Nondilated appendix. Body wall: Unremarkable Pelvis: Unremarkable urinary bladder. Reproductive organs are unremarkable on limited CT evaluation retroverted uterus. Anterior uterine calcification possibly senescent or calcified fibroid. Small fat containing inguinal hernias. Bones: No aggressive appearing osseous abnormality. Degenerative osseous changes. Age-indeterminate height loss of L1, probably nonacute. Trace anterolisthesis of L4 on L5. IMPRESSION: Colonic diverticula are seen without definite focal diverticular inflammation. Suspect mild segmental areas of colitis seen in the hepatic flexure, transverse colon and mid sigmoid. Consider colonoscopy correlation if clinically indicated for the above findings. Other findings above. Dictated by: Parker Crocker M.D. on 03/02/2025 at 10:48 ECG Data Attestation: I personally reviewed and interpreted this ECG as follows: Prior ECG tracings: available for review Interpretation: Normal sinus rhythm rate 61 SC interval 158 QRS [address] changes or T-wave inversion MDM Narrative Medical decision making narrative: Patient is a 74-year-old female presenting today with ongoing left lower quadrant pain. Intermittent vaginal bleeding which has now stopped. Blood work has been reviewed CBC within normal limits CMP within normal limits glucose 106 Bilirubin liver enzymes lipase within normal CT imaging reviewed Colonic diverticuli was out definite inflammation. Suspect colitis in the hepatic flexure. Consider colonoscopy EKGs reviewed and normal sinus rhythm Patient has chronic ongoing left lower quadrant pain. CT suggest possible colitis but in the hepatic flexure not in the left lower quadrant blood work is overall reassuring. Recommend outpatient colonoscopy At this time no need for antibiotics. Follow up outpatient. Patient updated on her test results. Not requiring anything else for pain. Discharge Plan Departure Patient Disposition: Home Clinical Impression: Diverticulosis Instructions: DI for Abdominal Pain-Adult Activity Restrictions/Additional Instructions: *You have been diagnosed with diverticulosis *What to do: At this time I recommend outpatient colonoscopy talk with your PCP no need for antibiotics *Continue to take medications as directed Tylenol Motrin as needed for pain *Follow up with your primary care provider in 2-3 days or call [phone] *Return to ER if you should have increasing pain persistent vomiting bloody stool or any new, worsening or concerning symptoms Prescriptions: No Action propranolol 60 mg capsule,extended release 24 hr 60 mg PO DAILY rosuvastatin 5 mg tablet PO DAILY Gemtesa 75 mg tablet 75 mg PO DAILY fluticasone propionate [Flonase Allergy Relief] 50 mcg/actuation spray,suspension 1 spray intranasal DAILY Qty: 16 3RF Rx Instructions: administer into each nostril estradiol [Estrace] 0.01 % (0.1 mg/gram) cream 1 g vaginal DAILY Qty: 42.5 0RF Rx Instructions: 1 g of cream intravaginally administered daily for 2 weeks, then reduce to twice weekly venlafaxine 37.5 mg capsule,extended release 24hr 37.5 mg PO DAILY Qty: 60 0RF Rx Instructions: Take 1 cap daily for 1 week then increase to 2 tabs daily sumatriptan succinate 25 mg tablet 25 mg PO .COMPLEX MDD 50mg PRN (Reason: migraine headache) Qty: 30 2RF Rx Instructions: take one tablet upon onset of migraine. May repeat once daily if persists more than two hours. gabapentin 100 mg capsule 200 mg PO BEDTIME MDD 2 capsules Qty: 60 2RF ipratropium bromide 21 mcg (0.03 %) spray,non-aerosol 2 spray intranasal BID Qty: 30 4RF Rx Instructions: administer into each nostril metoprolol succinate 50 mg tablet extended release 24 hr 25 mg PO DAILY Qty: 30 4RF sleep aid sheikh PO BEDTIME Referrals: Jill To MD [Primary Care Provider, Family Practice] Stand Alone Forms: Patient Portal/API
--- NOTE | 2025-03-02 10:09 | DI.CT.S_ITS ---
PROCEDURE: CT ABDOMEN PELVIS W CON INDICATIONS: LLQ pain TECHNIQUE: After the administration of intravenous contrast, axial sections acquired from the lung bases to the pubic symphysis. Coronal and sagittal reformats were performed. For radiation dose reduction, the following was used: automated exposure control, adjustment of mA and/or kV according to patient size. COMPARISON: None. FINDINGS: Image quality: Diagnostic Lower chest: Basal atelectasis. Trace hiatal hernia. Heart size is at the upper limit of normal. Liver: Unremarkable Gallbladder and biliary system: Unremarkable, nondilated Pancreas: No ductal dilation Spleen: Nonenlarged Adrenals: No discrete nodules Kidneys: No solid renal mass. Bilateral extrarenal pelvis. No obstructing calcified stone or hydronephrosis. Vessels and lymph nodes: No abdominal aortic aneurysm. The main portal vein is patent. Mild aortoiliac atherosclerotic calcifications. No lymphadenopathy by size criteria. Bowel and peritoneum: No bowel obstruction. No drainable abscess or ascites. Colonic diverticula. No significant focal diverticular inflammation. Moderate overall colonic fecal loading. Mild segmental areas of colonic wall thickening, most notably at the hepatic flexure and mid sigmoid. Nondilated appendix. Body wall: Unremarkable Pelvis: Unremarkable urinary bladder. Reproductive organs are unremarkable on limited CT evaluation retroverted uterus. Anterior uterine calcification possibly senescent or calcified fibroid. Small fat containing inguinal hernias. Bones: No aggressive appearing osseous abnormality. Degenerative osseous changes. Age-indeterminate height loss of L1, probably nonacute. Trace anterolisthesis of L4 on L5. IMPRESSION: Colonic diverticula are seen without definite focal diverticular inflammation. Suspect mild segmental areas of colitis seen in the hepatic flexure, transverse colon and mid sigmoid. Consider colonoscopy correlation if clinically indicated for the above findings. Other findings above. Dictated by: Parker Crocker M.D. on 03/02/2025 at 10:48 Approved by: Parker Crocker M.D. on 03/02/2025 at 10:53
[2025-03-02 10:15] LABS: Alanine Aminotransferase 21 IU/L (<35); Albumin 4.7 g/dL (3.5-5.0); Albumin Globulin Ratio 1.3 (1.0-2.8); Alkaline Phosphatase 53 U/L (38-126); Blood Urea Nitrogen 20 mg/dL (7-17); Calcium 9.4 mg/dL (8.4-10.2); Carbon Dioxide 28 mmol/L (22-32); Chloride 104 mmol/L (98-107); Estimated Glomerular Filt Rate > 60 mL/min (>60); Globulin 3.7 g/dL (1.7-4.1); Glucose 106 mg/dL (70-99); HEMOLYSIS 16 (0-50); Lipase 74 U/L (23-300); Potassium 4.0 mmol/L (3.4-5.1); Sodium 140 mmol/L (137-145); Total Protein 8.4 g/dL (6.3-8.2)
[2025-03-02 10:37] VITALS: PULSE 60; O2SAT 98
[2025-03-02 10:43] VITALS: BP 140/83; PULSE 65; RESP 19; O2SAT 98
[2025-03-02 11:00] VITALS: BP 128/65; PULSE 62; RESP 20; O2SAT 98
== END 2025-03-02 11:35 | disposition home or self-care (01) ==
PROVIDERS: Emergency Provider Emergency Medicine; PCP Family Medicine
DX: K57.30 Diverticulosis of large intestine without perforation or abscess without bleeding (principal); R19.7 Diarrhea, unspecified
CPT/HCPCS: 36415; 74177; 80053; 81003; 83690; 85025; 93005; 99283; 99284; Q9967